=== PATIENT | female | born 1965 | race Caucasian/White ===

== ENCOUNTER 2019-03-15 20:11 | Emergency (ER) | payer BC, MEDICARE ==
[2019-03-15] MEDS ORDERED: Sodium Chloride 0.9% 2.5 ML Syringe FLUSH PRN (20:33)
[2019-03-15] MEDS ORDERED: Sodium Chloride 0.9% 10 ML Syringe FLUSH PRN (20:33)
--- NOTE | 2019-03-15 20:33 | EDM.PDOC ---
ED HPI GENERAL MEDICAL PROBLEM - General Stated Complaint: FALL Time Seen by Provider: 03/15/19 20:20 - History of Present Illness INITIAL COMMENTS - FREE TEXT/NARRATIVE: HISTORY AND PHYSICAL: History of present illness: The patient is a 53-year-old female with a history of hypertension,DM, as well as a stroke with right-sided weakness, as documented in the computer, who presents after a slip and fall on the ice at home approximately 3 hours ago. She says she fell onto her butt and her right side impacting her lower back and right hip and tried to grab onto things as she was going down and feels pain in her right shoulder and in the muscles of that area. She says she did hit her head and has some pain at the occipital head area which radiates into her neck. She had no loss of consciousness no nausea or vomiting and no neurosensory changes or weakness that is new for her. When I ask her about her stroke history and her documented right-sided weakness in the computer she says that is actually her left side that's week as a result of her stroke, so it is unclear due to the conflict of this information. She says she was at her baseline when this occurred and had no systemic issues such as cough shortness of breath fevers chills abdominal pain vomiting or diarrhea. She says that she ate earlier without issues and she did not take anything specifically for any of her pain. She states compliance with her medications. Patient says that her whole right side is sore as she did try to stop herself from falling. She has no mid back pain and no left-sided extremity complaints. The patient takes Plavix regularly. The patient had no end organ complaints such as chest pain shortness of breath urinary issues numbness tingling or weakness and only complained of a headache where she struck the back of her head. Review of systems: As per history of present illness and below otherwise all systems reviewed and negative. Past medical history: As per history of present illness and as reviewed below otherwise noncontributory. Surgical history: As per history of present illness and as reviewed below otherwise noncontributory. Social history: No reported history of drug or alcohol abuse. Family history: As per history of present illness and as reviewed below otherwise noncontributory. Physical exam: General: Well-developed well-nourished female who is nontoxic and ambulated into the ED and moves easily without assistance. She is awake alert and oriented speaking clearly to me and a c-collar was placed on my initial evaluation due to her complaints of posterior head and neck pain HEENT: Atraumatic, normocephalic, pupils reactive, negative for conjunctival pallor or scleral icterus, mucous membranes moist, throat clear, neck supple, nontender, trachea midline. There are no scalp defects or deformities appreciated and only minimal tenderness at the occipital skull area without any soft tissue changes, there are no midline step-offs or defects of the cervical spine and there is diffuse cervical tenderness and paraspinal tenderness without any defects Lungs: Clear to auscultation, breath sounds equal bilaterally, chest nontender. Heart: S1S2, regular rate and rhythm no overt murmurs Abdomen: Soft, nondistended, nontender. Negative for masses or hepatosplenomegaly. Negative for costovertebral tenderness. Pelvis: Stable nontender. There is some mild tenderness at the lateral right hip and the posterior hip and pelvis area without any overt bruising appreciated Genitourinary: Deferred. Rectal: Deferred. Extremities: Atraumatic and full range of motion of all extremities including the right upper extremity and right lower extremity. There is some mild tenderness at the posterior shoulder area but no defects or deformities and no soft tissue injuries appreciated and when I squeeze the musculature of the biceps triceps and the deltoid the patient says that is where she is having discomfort and states it seems like it's more in the muscle. The patient is able to flex extend and fully range of motion of this extremity. At the right lower extremity she also has full range of motion without defects deformities or palpable bony changes and there is only the soft tissue tenderness as described above in the hip area., negative for cords or calf pain. Neurovascular unremarkable. Neuro: Awake, alert, oriented. Cranial nerves II through XII unremarkable. Cerebellum unremarkable. Motor is very subtly diminished on the right compared to left and sensory unremarkable throughout. Exam nonfocal. Back: There are no midline step-offs in his defects of the thoracic or lumbar spine and no posterior rib or posterior pelvis tenderness. There is no soft tissue injuries appreciated such as ecchymosis erythema or soft tissue changes. Diagnostics: EKG CT scan of the head and C-spine, 1 view chest x-ray, right shoulder x-ray, right hip with pelvis x-ray, LS-spine x-ray, UA with reflex CBC CMP INR troponin Therapeutics: IV O2 monitor hydralazine tramadol As the patient takes Plavix and sustained a fall hitting her head this case was called as a trauma alert. I will continue to monitor the workup that involved the trauma surgeon Dr. Lorenzo as needed. The patient tells nursing that she has not taken her evening medications. She says that she takes her losartan/ hydrochlorothiazide in the morning. Repeat blood pressure is 190/94. I discussed with the patient and family at bedside the need to call and follow-up with her provider at [facility], Dr. Bolivar, as she may need medication adjustment as her blood pressure is running on the higher side. At this point she does not meet criteria for admission for this and I will advise close follow-up in the clinic and will give her advice for pain management at home. I will give her a few tramadol to take as needed if [id number] medications do not work. Impression: Fall with right-sided pain and multiple aches and pains, closed head injury; hypertension poorly controlled with history of same Definitive disposition and diagnosis as appropriate pending reevaluation and review of above. back Pain Score (Numeric/FACES): 10 L arm Pain Score (Numeric/FACES): 10 - Related Data Allergies Allergy/AdvReac Type Severity Reaction Status Date / Time latex Allergy Blisters Verified 03/15/19 20:50 Home Meds: Home Meds traMADol [Ultram] 50 mg PO QID PRN 11/01/15 [History] atorvaSTATin [Lipitor] 40 mg PO BEDTIME 11/07/15 [History] Clopidogrel [Plavix] 75 mg PO DAILY 03/15/19 [History] FLUoxetine [PROzac] 20 mg PO QAM 03/15/19 [History] Losartan/Hydrochlorothiazide [Losartan-HCTZ 100-25 MG] 25 - 100 mg PO DAILY 05/03 [History] Meloxicam 7.5 mg PO BID 03/15/19 [History] Spironolactone [Aldactone] 25 mg PO DAILY 03/15/19 [History] glipiZIDE [Glucotrol XL] 2.5 mg PO DAILY 03/15/19 [History] traZODone HCl [Trazodone HCl] 50 mg PO BEDTIME PRN 03/15/19 [History] Past Medical History Cardiovascular History: Reports: High Cholesterol, Hypertension [employer] History: Reports: Musculoskeletal History: Reports: Arthritis Other Musculoskeletal History: 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 reports she experiences stiffness and swelling during flare ups. Neurological History: Reports: CVA - Infectious Disease History Infectious Disease History: Reports: Chicken Pox, Measles, Mumps - Past Surgical History Female Surgical History: Reports: Section Social & Family History - Family History Family Medical History: Noncontributory Endocrine/Metabolic: Reports: Diabetes, type II - Caffeine Use Caffeine Use: Reports: None ED ROS GENERAL - Review of Systems Review Of Systems: Comprehensive ROS is negative, except as noted in HPI. ED EXAM, GENERAL - Physical Exam Exam: See Below (see dictation) Course - Vital Signs Last Recorded V/S: Last Vital Signs Temp 35.9 C 03/15/19 20:15 Pulse 74 03/15/19 21:45 Resp 18 03/15/19 21:45 BP 219/114 H 03/15/19 21:45 Pulse Ox 97 03/15/19 21:45 - Orders/Labs/Meds Orders: Active Orders 24 hr Category Date Time Status Patient Status [ADT] Stat ADT 03/15/19 21:23 Active Cardiac Monitoring [RC] . DIRECTED Care 03/15/19 20:33 Active Communication Order [RC] STAT Care 03/15/19 20:33 Active EKG Documentation Completion [RC] STAT Care 03/15/19 20:33 Active Oxygen Therapy, ED [RC] ASDIRECTED Care 03/15/19 20:33 Active Sodium Chloride 0.9% [Saline Flush] Med 03/15/19 20:33 Active 10 ml FLUSH ASDIRECTED PRN Sodium Chloride 0.9% [Saline Flush] Med 03/15/19 20:33 Active 2.5 ml FLUSH ASDIRECTED PRN Saline Lock Insert [OM.PC] Stat Oth 03/15/19 20:33 Ordered Medication Orders Sodium Chloride (Saline Flush) 10 ml FLUSH ASDIRECTED PRN PRN Reason: Keep Vein Open Last Admin: 03/15/19 21:39 Dose: 10 ml Sodium Chloride (Saline Flush) 2.5 ml FLUSH ASDIRECTED PRN PRN Reason: Keep Vein Open Last Admin: 03/15/19 21:39 Dose: 2.5 ml Labs: Laboratory Tests 03/15/19 03/15/19 03/15/19 Range/Units 21:20 21:20 21:20 WBC 7.19 (4.0-11.0) K/uL RBC 4.89 (4.30-5.90) M/uL Hgb 14.4 (12.0-16.0) g/dL Hct 41.5 (36.0-46.0) % MCV 84.9 (80.0-98.0) fL MCH 29.4 (27.0-32.0) pg MCHC 34.7 (31.0-37.0) g/dL RDW Std Deviation 41.0 (28.0-62.0) fl RDW Coeff of Trey 13 (11.0-15.0) % Plt Count 285 (150-400) K/uL MPV 9.60 (7.40-12.00) fL Neut % (Auto) 63.6 (48.0-80.0) % Lymph % (Auto) 28.8 (16.0-40.0) % [place] % (Auto) 5.8 (0.0-15.0) % Eos % (Auto) 1.5 (0.0-7.0) % Baso % (Auto) 0.3 (0.0-1.5) % Neut # (Auto) 4.6 (1.4-5.7) K/uL Lymph # (Auto) 2.1 (0.6-2.4) K/uL [place] # (Auto) 0.4 (0.0-0.8) K/uL Eos # (Auto) 0.1 (0.0-0.7) K/uL Baso # (Auto) 0.0 (0.0-0.1) K/uL Nucleated RBC % 0.0 /100WBC Nucleated RBCs # 0 K/uL INR 1.02 Sodium 139 (136-145) mmol/L Potassium 3.8 (3.5-5.1) mmol/L Chloride 101 (98-107) mmol/L Carbon Dioxide 23.9 (21.0-32.0) mmol/L BUN 8 (7.0-18.0) mg/dL Creatinine 0.7 (0.6-1.0) mg/dL Est Cr Clr Drug Dosing 70.94 mL/min Estimated GFR (MDRD) > 60.0 ml/min Glucose 125 H (74-106) mg/dL Calcium 9.5 (8.5-10.1) mg/dL Total Bilirubin 0.5 (0.2-1.0) mg/dL AST 20 (15-37) IU/L ALT 47 (14-63) IU/L Alkaline Phosphatase 119 H (46-116) U/L Troponin I < 0.050 (0.000-0.056) ng/mL Total Protein 8.5 H (6.4-8.2) g/dL Albumin 4.3 (3.4-5.0) g/dL Globulin 4.2 H (2.6-4.0) g/dL Albumin/Globulin Ratio 1.0 (0.9-1.6) Urine Color Urine Appearance Urine pH (5.0-8.0) Ur Specific [place] (1.001-1.035) Urine Protein (NEGATIVE) mg/dL Urine Glucose (UA) (NEGATIVE) mg/dL Urine Ketones (NEGATIVE) mg/dL Urine Occult Blood (NEGATIVE) Urine Nitrite (NEGATIVE) Urine Bilirubin (NEGATIVE) Urine Urobilinogen (<2.0) EU/dL Ur Leukocyte Esterase (NEGATIVE) 03/15/19 Range/Units 21:55 WBC (4.0-11.0) K/uL RBC (4.30-5.90) M/uL Hgb (12.0-16.0) g/dL Hct (36.0-46.0) % MCV (80.0-98.0) fL MCH (27.0-32.0) pg MCHC (31.0-37.0) g/dL RDW Std Deviation (28.0-62.0) fl RDW Coeff of Trey (11.0-15.0) % Plt Count (150-400) K/uL MPV (7.40-12.00) fL Neut % (Auto) (48.0-80.0) % Lymph % (Auto) (16.0-40.0) % [place] % (Auto) (0.0-15.0) % Eos % (Auto) (0.0-7.0) % Baso % (Auto) (0.0-1.5) % Neut # (Auto) (1.4-5.7) K/uL Lymph # (Auto) (0.6-2.4) K/uL [place] # (Auto) (0.0-0.8) K/uL Eos # (Auto) (0.0-0.7) K/uL Baso # (Auto) (0.0-0.1) K/uL Nucleated RBC % /100WBC Nucleated RBCs # K/uL INR Sodium (136-145) mmol/L Potassium (3.5-5.1) mmol/L Chloride (98-107) mmol/L Carbon Dioxide (21.0-32.0) mmol/L BUN (7.0-18.0) mg/dL Creatinine (0.6-1.0) mg/dL Est Cr Clr Drug Dosing mL/min Estimated GFR (MDRD) ml/min Glucose (74-106) mg/dL Calcium (8.5-10.1) mg/dL Total Bilirubin (0.2-1.0) mg/dL AST (15-37) IU/L ALT (14-63) IU/L Alkaline Phosphatase (46-116) U/L Troponin I (0.000-0.056) ng/mL Total Protein (6.4-8.2) g/dL Albumin (3.4-5.0) g/dL Globulin (2.6-4.0) g/dL Albumin/Globulin Ratio (0.9-1.6) Urine Color YELLOW Urine Appearance CLEAR Urine pH 6.0 (5.0-8.0) Ur Specific [place] <= 1.005 (1.001-1.035) Urine Protein NEGATIVE (NEGATIVE) mg/dL Urine Glucose (UA) NEGATIVE (NEGATIVE) mg/dL Urine Ketones NEGATIVE (NEGATIVE) mg/dL Urine Occult Blood NEGATIVE (NEGATIVE) Urine Nitrite NEGATIVE (NEGATIVE) Urine Bilirubin NEGATIVE (NEGATIVE) Urine Urobilinogen 0.2 (<2.0) EU/dL Ur Leukocyte Esterase NEGATIVE (NEGATIVE) Meds: Medications Generic Name Dose Route Start Last Admin Trade Name Freq PRN Reason Stop Dose Admin Sodium Chloride 10 ml 03/15/19 20:33 03/15/19 21:39 Saline Flush FLUSH 10 ml ASDIRECTED PRN Administration Keep Vein Open Sodium Chloride 2.5 ml 03/15/19 20:33 03/15/19 21:39 Saline Flush FLUSH 2.5 ml ASDIRECTED PRN Administration Keep Vein Open Discontinued Medications Generic Name Dose Route Start Last Admin Trade Name Ericka PRN Reason Stop Dose Admin Hydralazine HCl 10 mg 03/15/19 21:33 03/15/19 21:39 Apresoline IVPUSH 03/15/19 21:34 10 mg ONETIME ONE Administration Ketorolac Tromethamine 30 mg 03/15/19 21:41 03/15/19 21:48 Toradol IVPUSH 03/15/19 21:42 30 mg ONETIME ONE Administration Tramadol HCl 50 mg 03/15/19 22:27 Ultram PO 03/15/19 22:28 ONETIME ONE Departure - Departure Time of Disposition: 22:28 Disposition: Home, Self-Care 01 Condition: Good Clinical Impression: Multiple contusions, Poorly-controlled hypertension Fall Qualifiers: Encounter type: initial encounter Qualified Code(s): W19.XXXA - Unspecified fall, initial encounter Closed head injury Qualifiers: Encounter type: initial encounter Qualified Code(s): S09.90XA - Unspecified injury of head, initial encounter - Discharge Information Referrals: Andrea Bolivar MD [Primary Care Provider] - Additional Instructions: The following information is given to patients seen in the emergency department who are being discharged to home. This information is to outline your options for follow-up care. We provide all patients seen in our emergency department with a follow-up referral. The need for follow-up, as well as the timing and circumstances, are variable depending upon the specifics of your emergency department visit. If you don't have a primary care physician on staff, we will provide you with a referral. We always advise you to contact your personal physician following an emergency department visit to inform them of the circumstance of the visit and for follow-up with them and/or the need for any referrals to a consulting specialist. The emergency department will also refer you to a specialist when appropriate. This referral assures that you have the opportunity for followup care with a specialist. All of these measure are taken in an effort to provide you with optimal care, which includes your followup. Under all circumstances we always encourage you to contact your private physician who remains a resource for coordinating your care. When calling for followup care, please make the office aware that this follow-up is from your recent emergency room visit. If for any reason you are refused follow-up, please contact the [facility] emergency department at and ask to speak to the emergency department charge nurse. [address] [place] [address] Expect aches and pains for the next several days to one week and apply ice to all areas of discomfort pain and swelling for the next 24 hours and then switch to heat. Use [id number] Tylenol and/or ibuprofen and only in the stronger pain medication, tramadol, as needed. Please call and follow-up with your provider at [facility] or one of his associates for reevaluation and further care as well as discussion of your elevated blood pressure here this evening area and they may need to adjust her medications pending reevaluation blood pressures. Return to ER as needed and as discussed - My Orders Last 24 Hours: My Active Orders 03/15/19 20:33 Cardiac Monitoring [RC] . DIRECTED Communication Order [RC] STAT EKG Documentation Completion [RC] STAT Oxygen Therapy, ED [RC] ASDIRECTED Sodium Chloride 0.9% [Saline Flush] 10 ml FLUSH ASDIRECTED PRN Sodium Chloride 0.9% [Saline Flush] 2.5 ml FLUSH ASDIRECTED PRN Saline Lock Insert [OM.PC] Stat 03/15/19 21:23 Patient Status [ADT] Stat - Assessment/Plan Last 24 Hours: My Active Orders 03/15/19 20:33 Cardiac Monitoring [RC] . DIRECTED Communication Order [RC] STAT EKG Documentation Completion [RC] STAT Oxygen Therapy, ED [RC] ASDIRECTED Sodium Chloride 0.9% [Saline Flush] 10 ml FLUSH ASDIRECTED PRN Sodium Chloride 0.9% [Saline Flush] 2.5 ml FLUSH ASDIRECTED PRN Saline Lock Insert [OM.PC] Stat 03/15/19 21:23 Patient Status [ADT] Stat
[2019-03-15] MEDS ORDERED: hydrALAZINE 20 MG/ML SDV IVPUSH ONE (21:33)
--- NOTE | 2019-03-15 21:33 | CR ---
INDICATION: Pain following fall. PELVIS AND RIGHT HIP Comparison: No previous studies are currently available for comparison. No fractures or destructive lesions of bone are identified. No hip dislocation is evident. No significant hip arthritic changes are demonstrated. Included soft tissues show no significant findings. IMPRESSION: No significant abnormality identified. TAMMY MALDONADO MD [employer] [employer] Dictated by: Wil Maldonado MD @ 03/15/2019 21:32:30 (Electronically Signed)
--- NOTE | 2019-03-15 21:33 | CR ---
INDICATION: Pain following fall. CHEST, ONE VIEW An AP radiograph of the chest was performed. Comparison: 11/01/2015. The lungs appear clear and no pleural effusions are identified. The cardiomediastinal silhouette and pulmonary vasculature appear normal, as do the visualized bones. IMPRESSION: No acute intrathoracic abnormality identified. TAMMY MALDONADO MD [facility] Dictated by: Wil Maldonado MD @ 03/15/2019 21:31:26 (Electronically Signed)
--- NOTE | 2019-03-15 21:40 | CT ---
INDICATION: Pain following fall. CT HEAD WITHOUT CONTRAST TECHNIQUE: Multiple axial CT images were performed through the head without intravenous contrast administration. COMPARISON: 01/13/[address] FINDINGS: No acute intracranial hemorrhage is identified. No extra-axial collections are evident and there is no mass effect or midline shift. Ventricles are normal in size and configuration. Brain parenchyma appears normal with unremarkable pacheco-white differentiation. Osseous structures are within normal limits and no fractures are seen. Included portions of the paranasal sinuses and mastoid air cells are normally aerated. IMPRESSION: Normal non-contrast head CT. TAMMY MALDONADO MD [facility] Dictated by: Wil Maldonado MD @ 03/15/2019 21:37:43 (Electronically Signed)
--- NOTE | 2019-03-15 21:40 | CR ---
INDICATION: Pain following fall. CT CERVICAL SPINE WITHOUT CONTRAST TECHNIQUE: Multidetector axial CT imaging was performed through the cervical spine, without contrast. Sagittal and coronal reconstructions were generated. FINDINGS: No acute fractures are identified. Osseous alignment is unremarkable and no subluxation is seen. Prevertebral soft tissues appear normal. Included portions of the airway and lung apices are within normal limits. A subcentimeter right thyroid nodule is present. IMPRESSION: No fracture, subluxation, or other acute finding identified in the cervical spine. TAMMY MALDONADO MD [facility] [employer] Dictated by: Wil Maldonado MD @ 03/15/2019 21:38:34 (Electronically Signed)
[2019-03-15] MEDS ORDERED: Ketorolac 30 MG/ML SDV IVPUSH ONE (21:41)
--- NOTE | 2019-03-15 21:44 | CR ---
INDICATION: Pain following fall. RIGHT SHOULDER No fracture, dislocation, or destructive lesion of bone is seen. No arthritic changes or soft tissue abnormalities are identified. IMPRESSION: Negative right shoulder radiographs. TAMMY MALDONADO MD [facility] Dictated by: Wil Maldonado MD @ 03/15/2019 21:43:01 (Electronically Signed)
[2019-03-15 22:20] LABS: BLOOD UREA NITROGEN,BUN 8 mg/dL (7.0-18.0); CARBON DIOXIDE,CO2 23.9 mmol/L (21.0-32.0); CHLORIDE,CL 101 mmol/L (98-107); GLUCOSE RANDOM 125 mg/dL (74-106); POTASSIUM,K 3.8 mmol/L (3.5-5.1); SODIUM,NA 139 mmol/L (136-145)
[2019-03-15] MEDS ORDERED: traMADol 50 MG Tab PO ONE (22:27)
[2019-03-15 22:36] VITALS: BP 180/90; PULSE 64
== END 2019-03-15 22:44 | disposition home or self-care (01) ==
LOC: MW.ED 20:11
DX: S09.90XA Unspecified injury of head, initial encounter (principal); T14.8XXA Other injury of unspecified body region, initial encounter; M54.2 Cervicalgia; M25.551 Pain in right hip; M25.511 Pain in right shoulder; I10 Essential (primary) hypertension; E11.9 Type 2 diabetes mellitus without complications; E78.00 Pure hypercholesterolemia, unspecified; M06.9 Rheumatoid arthritis, unspecified; Z86.73 Personal history of transient ischemic attack (TIA), and cerebral infarction without residual deficits; Z79.02 Long term (current) use of antithrombotics/antiplatelets; Z91.040 Latex allergy status; Z79.84 Long term (current) use of oral hypoglycemic drugs; Z79.899 Other long term (current) drug therapy; W00.0XXA Fall on same level due to ice and snow, initial encounter
CPT/HCPCS: 36415; 70450; 71045; 72100; 72125; 73030; 73502; 80053; 81003; 84484; 85025; 85610; 93005; 96374; 96375; 99285; A9270; J0360; J1885

== ENCOUNTER 2019-03-23 20:19 | Emergency (ER) | payer MEDICARE ==
--- NOTE | 2019-03-23 21:08 | EDM.PDOC ---
ED HPI GENERAL MEDICAL PROBLEM - General Chief Complaint: ENT Problem Stated Complaint: EAR DRUM PAIN Time Seen by Provider: 03/23/19 20:27 Source of Information: Reports: Patient History Limitations: Reports: No Limitations - History of Present Illness INITIAL COMMENTS - FREE TEXT/NARRATIVE: HISTORY AND PHYSICAL: History of present illness: Patient is a 53-year-old female presents to the ED today with concern of right ear pain since this afternoon. Patient states earlier today she noticed blood in her ear canal. Patient states she does use Q-tips but is unsure if this is what caused injury to her ear with her symptoms but of infection going on. Patient denies any other symptoms or concerns. Patient denies fever, chills, chest pain, shortness of breath, or cough. Denies headache, neck stiff ness, change in vision, syncope, or near syncope. Denies nausea, vomiting, abdominal pain, diarrhea, constipation, or dysuria. Has not noted any blood in urine or stool. Patient has been eating and drinking appropriately. Review of systems: As per history of present illness and below otherwise all systems reviewed and negative. Past medical history: As per history of present illness and as reviewed below otherwise noncontributory. Surgical history: As per history of present illness and as reviewed below otherwise noncontributory. Social history: See social history for further information Family history: As per history of present illness and as reviewed below otherwise noncontributory. Physical exam: General: Patient is alert, oriented, and in no acute distress. Patient sitting comfortably on exam table. HEENT: Atraumatic, normocephalic, pupils equal and reactive bilaterally, negative for conjunctival pallor or scleral icterus, mucous membranes moist, left TM is normal, unable to visualize the right TM due to blood in the external auditory canal, patient does have pain with movement of the right auricle and pain with palpation of the right tragus but negative mastoid tenderness, throat clear, neck supple, nontender, trachea midline. No drooling or trismus noted. No meningeal signs. No hot potato voice noted. Lungs: Clear to auscultation, breath sounds equal bilaterally, chest nontender. Heart: S1S2, regular rate and rhythm without overt murmur Abdomen: Soft, nondistended, nontender. Negative for masses or hepatosplenomegaly. Negative for costovertebral tenderness. Pelvis: Stable nontender. Genitourinary: Deferred. Rectal: Deferred. Skin: Intact, warm, dry. No lesions or rashes noted. Extremities: Atraumatic, negative for cords or calf pain. Neurovascular unremarkable. Neuro: Awake, alert, oriented. Cranial nerves II through XII unremarkable. Cerebellum unremarkable. Motor and sensory unremarkable throughout. Exam nonfocal. Notes: Dr. Jean directly involved in patient care. I did call and speak with the nose and throat specialist, Dr. Turcios, at [facility] and thoroughly discussed patients case who recommended starting patient on Ciprodex and does not see the need for oral antibiotics at this time. Voices understanding and is agreeable to plan of care. Denies any further questions or concerns at this time. Diagnostics: None Therapeutics: None Prescription: Ciprodex Impression: Right acute otitis externa Plan: 1. Apply medication as prescribed. You can alternate ibuprofen and Tylenol as directed for pain and discomfort. Do not get water into the ear as discussed. 2. Follow-up with the ENT specialist, Dr. Turcios, as discussed. Return to the ED as needed and as discussed. Definitive disposition and diagnosis as appropriate pending reevaluation and review of above. Right Ear Pain Score (Numeric/FACES): 5 - Related Data Allergies Allergy/AdvReac Type Severity Reaction Status Date / Time latex Allergy Blisters Verified 03/23/19 20:29 Home Meds: Home Meds traMADol [Ultram] 50 mg PO QID PRN 11/01/15 [History] atorvaSTATin [Lipitor] 40 mg PO BEDTIME 11/07/15 [History] Clopidogrel [Plavix] 75 mg PO DAILY 03/15/19 [History] FLUoxetine [PROzac] 20 mg PO QAM 03/15/19 [History] Spironolactone [Aldactone] 25 mg PO DAILY 03/15/19 [History] glipiZIDE [Glucotrol XL] 2.5 mg PO DAILY 03/15/19 [History] traZODone HCl [Trazodone HCl] 25 mg PO BEDTIME PRN 03/15/19 [History] Losartan/Hydrochlorothiazide [Losartan-HCTZ 100-12.5 MG] 1 each PO DAILY [History] Past Medical History Cardiovascular History: Reports: High Cholesterol, Hypertension Respiratory History: Reports: None Gastrointestinal History: Reports: None Genitourinary History: Reports: None [employer] History: Reports: Musculoskeletal History: Reports: Arthritis Other Musculoskeletal History: 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 reports she experiences stiffness and swelling during flare ups. Neurological History: Reports: CVA Psychiatric History: Reports: Anxiety, Depression Endocrine/Metabolic History: Reports: Diabetes, Type II Hematologic History: Reports: None Immunologic History: Reports: None Oncologic (Cancer) History: Reports: None Dermatologic History: Reports: None - Infectious Disease History Infectious Disease History: Reports: Chicken Pox - Past Surgical History Head Surgeries/Procedures: Reports: None HEENT Surgical History: Reports: Tonsillectomy Female Surgical History: Reports: Section Endocrine Surgical History: Reports: None Social & Family History - Family History Family Medical History: Noncontributory Endocrine/Metabolic: Reports: Diabetes, type II - Tobacco Use Smoking Status *Q: Never Smoker - Caffeine Use Caffeine Use: Reports: None - Recreational Drug Use Recreational Drug Use: No ED ROS GENERAL - Review of Systems Review Of Systems: Comprehensive ROS is negative, except as noted in HPI. ED EXAM, GENERAL - Physical Exam Exam: See Below (see dictation) Course - Vital Signs Last Recorded V/S: Last Vital Signs Temp 96.9 F 03/23/19 20:25 Pulse 63 03/23/19 20:25 Resp 16 03/23/19 20:25 BP 167/92 H 03/23/19 20:25 Pulse Ox 97 03/23/19 20:25 Departure - Departure Time of Disposition: 21:08 Disposition: Home, Self-Care 01 Clinical Impression: Otitis externa Qualifiers: Otitis externa type: unspecified type Chronicity: acute Laterality: right Qualified Code(s): H60.501 - Unspecified acute noninfective otitis externa, right ear - Discharge Information Referrals: PCP,Unknown [Primary Care Provider] - Additional Instructions: The following information is given to patients seen in the emergency department who are being discharged to home. This information is to outline your options for follow-up care. We provide all patients seen in our emergency department with a follow-up referral. The need for follow-up, as well as the timing and circumstances, are variable depending upon the specifics of your emergency department visit. If you don't have a primary care physician on staff, we will provide you with a referral. We always advise you to contact your personal physician following an emergency department visit to inform them of the circumstance of the visit and for follow-up with them and/or the need for any referrals to a consulting specialist. The emergency department will also refer you to a specialist when appropriate. This referral assures that you have the opportunity for follow-up care with a specialist. All of these measure are taken in an effort to provide you with optimal care, which includes your follow-up. Under all circumstances we always encourage you to contact your private physician who remains a resource for coordinating your care. When calling for follow-up care, please make the office aware that this follow-up is from your recent emergency room visit. If for any reason you are refused follow-up, please contact the [facility] Emergency Department at and asked to speak to the emergency department charge nurse. [facility] [address] [place] [id number] [facility] [address] [place] [id number] [facility], Dr. Turcios [address] [place] [address], [address] [place] [id number] 1. Apply medication as prescribed. You can alternate ibuprofen and Tylenol as directed for pain and discomfort. Do not get water into the ear as discussed. 2. Follow-up with the ENT specialist, Dr. Turcios, as discussed. Return to the ED as needed and as discussed.
[2019-03-23 21:12] VITALS: BP 165/82; PULSE 64
== END 2019-03-23 21:15 | disposition home or self-care (01) ==
LOC: MW.ED 20:19
DX: H60.501 Unspecified acute noninfective otitis externa, right ear (principal); I10 Essential (primary) hypertension; E11.9 Type 2 diabetes mellitus without complications; E78.00 Pure hypercholesterolemia, unspecified; M19.90 Unspecified osteoarthritis, unspecified site; F41.9 Anxiety disorder, unspecified; F32.9 Major depressive disorder, single episode, unspecified; Z86.73 Personal history of transient ischemic attack (TIA), and cerebral infarction without residual deficits; Z91.040 Latex allergy status; Z79.899 Other long term (current) drug therapy; Z79.84 Long term (current) use of oral hypoglycemic drugs; Z79.02 Long term (current) use of antithrombotics/antiplatelets
CPT/HCPCS: 99282; 99283

== ENCOUNTER 2020-11-01 05:49 | Observation (INO) | payer MEDICARE ==
[2020-11-01] MEDS ORDERED: Sodium Chloride 0.9% 10 ML SDV IV PRN (05:52)
[2020-11-01] MEDS ORDERED: Sodium Chloride 0.9% 2.5 ML Syringe FLUSH PRN ×2 (05:52→08:39)
[2020-11-01] MEDS ORDERED: Sodium Chloride 0.9% 10 ML Syringe FLUSH PRN (05:52)
--- NOTE | 2020-11-01 06:13 | EDM.PDOC ---
ED HPI GENERAL MEDICAL PROBLEM - General Stated Complaint: HIGH BP, LEFT SIDE WEAKNESS, TROUBLE TALKING Time Seen by Provider: 11/01/20 06:00 - History of Present Illness INITIAL COMMENTS - FREE TEXT/NARRATIVE: HISTORY AND PHYSICAL: History of present illness: This is a 55-year-old female with a history significant for hypertension, diabetes, prior stroke in the past in 2014, who presents ER today with a last known well of 10 PM (8 hours ago) and when she woke up this morning at 6 AM she had difficulty speaking with slurred speech and difficulty coordinating her tongue as well as increased weakness to her left upper and left lower extremities. Patient reports that after her stroke in 2014 she had residual slight weakness to her left upper and left lower extremities however she reports when she woke up today that she had significantly worse weakness to her left upper and left lower extremities. Patient reports no weakness to her right side. Patient denies any change in sensation or paresthesias. Patient denies any double or blurred vision. Patient denies any chest pain or shortness of breath. Patient denies any recent fevers, shakes, chills, nausea, vomiting, diarrhea, dysuria, frequency, urgency. Patient reports that she is supposed to be on Plavix however she usually gets her Plavix in the mail and has been out of her Plavix now secondary to technical difficulties with obtaining it through mail order and has not taken it for approximately 7 days. Review of systems: As per history of present illness and below otherwise all systems reviewed and negative. Past medical history: As per history of present illness and as reviewed below otherwise noncontributory. Surgical history: As per history of present illness and as reviewed below otherwise noncontributory. Social history: No reported history of drug abuse. Family history: As per history of present illness and as reviewed below otherwise noncontributory. Physical exam: This patient was seen and evaluated during the 2019 SARS-CoV-2 novel coronavirus pandemic period. Community viral transmission is ongoing at time of this encounter and the emergency department is operating under pandemic response procedures. Constitutional: Patient is oriented to person, place, and time. Appears well- developed and well-nourished. No distress. HEENT: Moist mucous membranes Head: Normocephalic and atraumatic Eyes: Right eye exhibits no discharge. Left eye exhibits no discharge. No scleral icterus Neck: Normal range of motion. No tracheal deviation present. Cardiovascular: Normal rate and regular rhythm. Pulmonary: Effort normal, no respiratory distress. Abdominal: No distention Musculoskeletal: Normal range of motion Neurologic: Alert and oriented to person, place and time. Skin: [place], warm and dry. Psychiatric: Normal mood and affect. Behavior is normal. Judgment and thought content normal. Nursing note and vital signs have been reviewed Neuro: A&Ox3. Cranial nerves II-XII grossly intact except for a left facial droop which the patient reports is baseline for her, normal tongue movement, normal smile, 5 out of 5 strength to patients right upper and right lower extremity, patient with 4 out of 5 strength to her left upper and left lower extremities with a slight pronator drift to her left upper and lower extremities. Sensation intact to bilateral upper and lower extremities, no nystagmus, PERRLA, EOMI, normal speech, proprioception intact to bilateral lower extremities, normal finger to nose test, gait normal 1a) Level of consciousness: 0=alert; 1=not alert but arousable by minor stimulation; 2=not alert: requires repeated stimulation to attend or is obtunded and requires strong or painful stimulation to make movements; 3=responds only with reflex motor or autonomic effects or totally unresponsive, flaccid and ar eflexic SCORE 0 1b) LOC questions ("what month is it?", "how old are you?"): 0=answers both correctly; 1=answers one correctly; 2=answers neither correctly SCORE 0 1c) LOC commands (command patient to "open and close your eyes. Test Desk Supervisor and release your hand.): 0=performs both correctly; 1=performs one correctly; 2=performs neither correctly SCORE 0 2) Best gaze ("follow my finger"): 0=normal; 1=partial gaze palsy; 2=forced deviation or total gaze paresis SCORE 0 3) Visual christianson (use confrontation, finger counting, or visual threat. confront upper/lower quadrants of visual field): 0=no visual loss; 1=partial hemianopsia; 2=complete hemianopsia; 3=bilateral hemianopsia SCORE 0 4) Facial palsy (by words or pantomime, encourage patient to: "Show me your teeth. Raise your eyebrows. Close your eyes."): 0=normal symmetrical movement; 1=minor paralysis (flattened nasolabial fold, asymmetry on smiling); 2=partial paralysis (lower face); 3=complete paralysis SCORE 1 5) Arm motor (alternately position patient's arms. extend each arm with palms down [90 degrees if sitting, 45 degrees if supine] - test each arm in turn and start with nonparetic arm first): 0=no drift; 1=drift (arm falls before 10 seconds); 2=some effort vs. gravity; 3=no effort vs. gravity; 4=no movement; UN (untestable)=amputation or joint fusion SCORE 1 6) Leg motor (alternately position patient's legs. extend each leg [30 degrees, always while supine] - test nonparetic leg first): 0=no drift; 1=drift (leg falls before 5 seconds); 2=some effort vs. gravity; 3= no effort vs. gravity; 4=no movement; UN=amputation or joint fusion SCORE 1 7) Limb ataxia (ask patient [eyes open] to: "touch your finger to your nose. touch your heel to your baugh"): 0=absent; 1=present in one limb; 2=present in two or more limbs; UN=amputation or joint fusion SCORE 0 8) Sensory (test as many body parts as possible [arms and not hands, legs, trunk, face] for sensation using pinprick or noxious stimuli [in the obtunded or aphasic patient]): 0=normal; 1=mild to moderate sensory loss; 2=severe to total sensory loss SCORE 0 9) Best language (using pictures and a sentence list, ask patient to "describe what you see in this picture. Name the items in this picture. Read these sentences"): 0=no aphasia, 1=mild to moderate aphasia; 2=severe aphasia; 3=mute, global aphasia SCORE 0 10) Dysarthria (using a simple word list, ask patient to: "read these words" or "repeat these words"): 0=normal articulation; 1=mild to moderate dysarthria; 2=severe dysarthria; UN=intubated or other physical barrier SCORE 0 11) Extinction and inattention (sufficient information to determine these scores may have been obtained during the prior testing): 0=no abnormality; 1=visual, tactile, auditory, spatial or personal inattention; 2=profound melvin-inattention or extinction to more than one modality SCORE 0 TOTAL NIHSS Score: 3 Diagnostics: CBC, CMP, INR, troponin, urinalysis Chest Xray: Normal cardiac silhouette No infiltrates or effusions identified. No PTX No evidence of acute bony fracture. As interpreted by ER MD: Arthur CT head, CTA of head and neck Therapeutics: Nicardipine drip Assessment and plan: This is a 55-year-old female with a history significant for hypertension, diabetes, prior stroke with residual left-sided weakness who presents ER today secondary to waking up with worsening weakness to her left upper and left lower extremity with slurring her speech and difficulty coordinating her tongue. Upon arrival to the ED, the patient speech had significantly improved but still has weakness to her left upper and left lower extremity. Patient is supposed be on Plavix for her prior stroke however she has not taken any Plavix for the last 7 days. Patient's blood pressure is markedly elevated here in the ED 234/124 A stroke alert was immediately called upon evaluation of the patient. Patient's last known well is approximately 8 hours prior to arrival to the ED. Patient will get a CT scan of her head as well as a CT angio of her head and neck for further evaluation. Patient will get started on a nicardipine drip to manage her elevated blood pressure. 6:44 AM: Patient was started on a nicardipine drip secondary to her markedly elevated blood pressure. Patient's blood pressure currently is Upon reevaluation of the patient, she reports that her left upper and lower extremity weakness has significantly improved. Patient's speech has significantly improved as well. Definitive disposition and diagnosis as appropriate pending reevaluation and review of above. Critical Care: The high probability of sudden, clinically significant deterioration in the patient's condition required the highest level of my preparedness to intervene urgently. The services I provided to this patient were to treat and/or prevent clinically significant deterioration. Services included the following: chart data review, reviewing nursing notes and/or old charts, documentation time, clinical documentation consultant collaboration regarding findings and treatment options, medication orders and management, direct patient care, vital sign assessments and ordering, interpreting and reviewing diagnostic studies/lab tests. Aggregate critical care time includes only time during which I was engaged inwork directly related to the patient's care, as described above, whether at the bedside or elsewhere in the Emergency Department. It did not include time spent performing other reported procedures or the services of residents, students, nurses or physician assistants. Critical Care Time: 35 minutes Left Hand Pain Score (Numeric/FACES): 0 - Related Data Allergies Allergy/AdvReac Type Severity Reaction Status Date / Time No Known Allergies Allergy Verified 11/01/20 15:13 Home Meds: Home Meds traMADol [Ultram] 50 mg PO QID PRN 11/01/15 [History] atorvaSTATin [Lipitor] 40 mg PO BEDTIME 11/07/15 [History] glipiZIDE [Glucotrol XL] 5 mg PO DAILY 03/15/19 [History] Aspirin 81 mg PO DAILY 11/01/20 [History] Pioglitazone [Actos] 30 mg PO DAILY PRN 11/01/20 [History] Telmisartan 80 mg PO DAILY 11/01/20 [History] Clopidogrel [Plavix] 75 mg PO DAILY #30 tab 11/02/20 [Rx] amLODIPine Besylate [Amlodipine Besylate] 10 mg PO DAILY #30 tablet 11/02/20 [Rx] Past Medical History Cardiovascular History: Reports: High Cholesterol, Hypertension Respiratory History: Reports: None Gastrointestinal History: Reports: None Genitourinary History: Reports: None 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 reports she experiences stiffness and swelling during flare ups. Neurological History: Reports: CVA Psychiatric History: Reports: Anxiety, Depression Endocrine/Metabolic History: Reports: Diabetes, Type II Hematologic History: Reports: None Immunologic History: Reports: None Oncologic (Cancer) History: Reports: None Dermatologic History: Reports: None - Infectious Disease History Infectious Disease History: Reports: Chicken Pox - Past Surgical History Head Surgeries/Procedures: Reports: None HEENT Surgical History: Reports: Tonsillectomy Female Surgical History: Reports: Section Endocrine Surgical History: Reports: None Social & Family History - Family History Family Medical History: No Pertinent Family History Endocrine/Metabolic: Reports: Diabetes, type II - Caffeine Use Caffeine Use: Reports: None ED ROS GENERAL - Review of Systems Review Of Systems: See Below ED EXAM, GENERAL - Physical Exam Exam: See Below #1 Interpretation EKG Interpretation Comments: EKG: As interpreted by ER physician: Arthur: Nonspecific ST-T wave abnormalities Normal axis No evidence of ST elevation OR Normal sinus rhythm heart rate of 81 Course - Vital Signs Last Recorded V/S: Last Vital Signs Temp 97.6 F 11/02/20 15:06 Pulse 63 11/02/20 15:58 Resp 18 11/02/20 15:06 BP 141/76 H 11/02/20 15:58 Pulse Ox 99 11/02/20 15:06 - Orders/Labs/Meds Labs: Laboratory Tests 11/01/20 11/01/20 11/01/20 Range/Units 05:54 05:54 05:54 WBC 6.43 (4.0-11.0) K/uL RBC 4.65 (4.30-5.90) M/uL Hgb 13.5 (12.0-16.0) g/dL Hct 39.2 (36.0-46.0) % MCV 84.3 (80.0-98.0) fL MCH 29.0 (27.0-32.0) pg MCHC 34.4 (31.0-37.0) g/dL RDW Std Deviation 40.9 (28.0-62.0) fl RDW Coeff of Trey 14 (11.0-15.0) % Plt Count 275 (150-400) K/uL MPV 9.60 (7.40-12.00) fL Neut % (Auto) 55.9 (48.0-80.0) % Lymph % (Auto) 33.3 (16.0-40.0) % [place] % (Auto) 8.6 (0.0-15.0) % Eos % (Auto) 1.7 (0.0-7.0) % Baso % (Auto) 0.5 (0.0-1.5) % Neut # (Auto) 3.6 (1.4-5.7) K/uL Lymph # (Auto) 2.1 (0.6-2.4) K/uL [place] # (Auto) 0.6 (0.0-0.8) K/uL Eos # (Auto) 0.1 (0.0-0.7) K/uL Baso # (Auto) 0.0 (0.0-0.1) K/uL Nucleated RBC % 0.0 /100WBC Nucleated RBCs # 0 K/uL INR 0.98 APTT 24.8 (18.6-31.3) SEC Sodium 137 (136-145) mmol/L Potassium 3.6 (3.5-5.1) mmol/L Chloride 101 (98-107) mmol/L Carbon Dioxide 25.5 (21.0-32.0) mmol/L BUN 11 (7.0-18.0) mg/dL Creatinine 0.8 (0.6-1.0) mg/dL Est Cr Clr Drug Dosing TNP Estimated GFR (MDRD) > 60.0 ml/min Glucose 184 H (74-106) mg/dL POC Glucose (70-99) mg/dL Hemoglobin A1c (4.5 - 6.2) % Calcium 9.2 (8.5-10.1) mg/dL Total Bilirubin 0.5 (0.2-1.0) mg/dL AST 23 (15-37) IU/L ALT 43 (14-63) IU/L Alkaline Phosphatase 142 H (46-116) U/L Creatine Kinase (26-308) U/L Troponin I < 0.050 (0.000-0.056) ng/mL Total Protein 7.8 (6.4-8.2) g/dL Albumin 3.9 (3.4-5.0) g/dL Globulin 3.9 (2.6-4.0) g/dL Albumin/Globulin Ratio 1.0 (0.9-1.6) Triglycerides (0-200) mg/dL Cholesterol (50-200) mg/dL LDL Cholesterol, Calc (60-180) mg/dL VLDL Cholesterol (5-55) mg/dL HDL Cholesterol (40-60) mg/dL Cholesterol/HDL Ratio (3.3-6.0) TSH, Ultra Sensitive (0.36-3.74) uIU/mL 11/01/20 11/01/20 11/01/20 Range/Units 05:54 05:54 05:54 WBC (4.0-11.0) K/uL RBC (4.30-5.90) M/uL Hgb (12.0-16.0) g/dL Hct (36.0-46.0) % MCV (80.0-98.0) fL MCH (27.0-32.0) pg MCHC (31.0-37.0) g/dL RDW Std Deviation (28.0-62.0) fl RDW Coeff of Trey (11.0-15.0) % Plt Count (150-400) K/uL MPV (7.40-12.00) fL Neut % (Auto) (48.0-80.0) % Lymph % (Auto) (16.0-40.0) % [place] % (Auto) (0.0-15.0) % Eos % (Auto) (0.0-7.0) % Baso % (Auto) (0.0-1.5) % Neut # (Auto) (1.4-5.7) K/uL Lymph # (Auto) (0.6-2.4) K/uL [place] # (Auto) (0.0-0.8) K/uL Eos # (Auto) (0.0-0.7) K/uL Baso # (Auto) (0.0-0.1) K/uL Nucleated RBC % /100WBC Nucleated RBCs # K/uL INR APTT (18.6-31.3) SEC Sodium (136-145) mmol/L Potassium (3.5-5.1) mmol/L Chloride (98-107) mmol/L Carbon Dioxide (21.0-32.0) mmol/L BUN (7.0-18.0) mg/dL Creatinine (0.6-1.0) mg/dL Est Cr Clr Drug Dosing Estimated GFR (MDRD) ml/min Glucose (74-106) mg/dL POC Glucose 191 H (70-99) mg/dL Hemoglobin A1c 7.9 H (4.5 - 6.2) % Calcium (8.5-10.1) mg/dL Total Bilirubin (0.2-1.0) mg/dL AST (15-37) IU/L ALT (14-63) IU/L Alkaline Phosphatase (46-116) U/L Creatine Kinase (26-308) U/L Troponin I (0.000-0.056) ng/mL Total Protein (6.4-8.2) g/dL Albumin (3.4-5.0) g/dL Globulin (2.6-4.0) g/dL Albumin/Globulin Ratio (0.9-1.6) Triglycerides 179 (0-200) mg/dL Cholesterol 201 H (50-200) mg/dL LDL Cholesterol, Calc 112 (60-180) mg/dL VLDL Cholesterol 35 (5-55) mg/dL HDL Cholesterol 53 (40-60) mg/dL Cholesterol/HDL Ratio 3.8 (3.3-6.0) TSH, Ultra Sensitive 3.04 (0.36-3.74) uIU/mL 11/01/20 Range/Units 05:54 WBC (4.0-11.0) K/uL RBC (4.30-5.90) M/uL Hgb (12.0-16.0) g/dL Hct (36.0-46.0) % MCV (80.0-98.0) fL MCH (27.0-32.0) pg MCHC (31.0-37.0) g/dL RDW Std Deviation (28.0-62.0) fl RDW Coeff of Trey (11.0-15.0) % Plt Count (150-400) K/uL MPV (7.40-12.00) fL Neut % (Auto) (48.0-80.0) % Lymph % (Auto) (16.0-40.0) % [place] % (Auto) (0.0-15.0) % Eos % (Auto) (0.0-7.0) % Baso % (Auto) (0.0-1.5) % Neut # (Auto) (1.4-5.7) K/uL Lymph # (Auto) (0.6-2.4) K/uL [place] # (Auto) (0.0-0.8) K/uL Eos # (Auto) (0.0-0.7) K/uL Baso # (Auto) (0.0-0.1) K/uL Nucleated RBC % /100WBC Nucleated RBCs # K/uL INR APTT (18.6-31.3) SEC Sodium (136-145) mmol/L Potassium (3.5-5.1) mmol/L Chloride (98-107) mmol/L Carbon Dioxide (21.0-32.0) mmol/L BUN (7.0-18.0) mg/dL Creatinine (0.6-1.0) mg/dL Est Cr Clr Drug Dosing Estimated GFR (MDRD) ml/min Glucose (74-106) mg/dL POC Glucose (70-99) mg/dL Hemoglobin A1c (4.5 - 6.2) % Calcium (8.5-10.1) mg/dL Total Bilirubin (0.2-1.0) mg/dL AST (15-37) IU/L ALT (14-63) IU/L Alkaline Phosphatase (46-116) U/L Creatine Kinase 100 (26-308) U/L Troponin I (0.000-0.056) ng/mL Total Protein (6.4-8.2) g/dL Albumin (3.4-5.0) g/dL Globulin (2.6-4.0) g/dL Albumin/Globulin Ratio (0.9-1.6) Triglycerides (0-200) mg/dL Cholesterol (50-200) mg/dL LDL Cholesterol, Calc (60-180) mg/dL VLDL Cholesterol (5-55) mg/dL HDL Cholesterol (40-60) mg/dL Cholesterol/HDL Ratio (3.3-6.0) TSH, Ultra Sensitive (0.36-3.74) uIU/mL Meds: Medications Discontinued Medications Generic Name Dose Route Start Last Admin Trade Name Freq PRN Reason Stop Dose Admin Acetaminophen 650 mg 11/01/20 08:39 Acetaminophen 325 Mg Tab PO Q4H PRN Pain (Mild 1-3)/fever Amlodipine Besylate 5 mg 11/02/20 10:51 11/02/20 11:20 Amlodipine 5 Mg Tab PO 11/02/20 10:52 5 mg ONETIME ONE Administration Amlodipine Besylate 5 mg 11/02/20 13:41 11/02/20 14:02 Amlodipine 5 Mg Tab PO 11/02/20 13:42 5 mg ONETIME ONE Administration Aspirin 81 mg 11/01/20 09:00 11/02/20 08:18 Aspirin 81 Mg Tab.Chew PO 81 mg DAILY ANA Administration Atorvastatin Calcium 40 mg 11/01/20 21:00 11/01/20 20:34 Atorvastatin 40 Mg Tab PO 40 mg BEDTIME ANA Administration Clopidogrel Bisulfate 75 mg 11/01/20 13:00 11/02/20 08:20 Clopidogrel 75 Mg Tab PO 75 mg DAILY ANA Administration Dextrose/Water 50 ml 11/01/20 08:42 50% Dextrose In Water 50 Ml Syringe IVPUSH ASDIRECTED PRN Hypoglycemia Enoxaparin Sodium 40 mg 11/01/20 13:00 11/02/20 13:33 Enoxaparin 40 Mg/0.4 Ml Syringe SUBCUT 40 mg Q24H ANA Administration Gadobenate Dimeglumine 20 ml 11/01/20 09:54 11/01/20 10:01 Gadobenate Dimeglumine 529 Mg/Ml 20 Ml Sdv IVPUSH 11/01/20 09:55 15 ml ONETIME STA Administration Glucagon 1 mg 11/01/20 08:42 Glucagon,Human Recombinant 1 Mg Vial IM ASDIRECTED PRN Hypoglycemia Nicardipine HCl 20 mg in 200 mls @ 50 mls/hr 11/01/20 06:15 11/01/20 06:48 Cardene In Ns 20 Mg/200 Ml IV 0 mg/hr TITRATE ANA 0 mls/hr Titration Protocol 5 MG/HR Sodium Chloride 1,000 mls @ 150 mls/hr 11/01/20 07:45 Normal Saline IV ASDIRECTED ANA Magnesium Sulfate 2 gm/ Premix 50 mls @ 25 mls/hr 11/02/20 08:06 11/02/20 08:22 IV 11/02/20 10:05 25 mls/hr ONETIME ONE Administration Insulin Aspart 0 unit 11/01/20 08:42 11/02/20 12:38 Insulin Aspart 100 Units/Ml 3 Ml Pen SUBCUT 1 unit TIDAC ANA Administration Protocol Iopamidol 100 ml 11/01/20 06:20 11/01/20 06:21 Iopamidol 755 Mg/Ml 500 Ml Multipack Bottle IVPUSH 11/01/20 06:21 100 ml ONETIME STA Administration Labetalol HCl 20 mg 11/01/20 13:58 11/02/20 13:51 Labetalol 100 Mg/20 Ml Mdv IVPUSH 20 mg Q4H PRN Administration SBP>180 Labetalol HCl 10 mg 11/02/20 15:23 11/02/20 15:58 Labetalol 100 Mg/20 Ml Mdv IVPUSH 11/02/20 15:24 Not Given ONETIME ONE Ondansetron HCl 4 mg 11/01/20 08:39 Ondansetron 4 Mg/2 Ml Sdv IVPUSH Q4H PRN Nausea Sodium Chloride 10 ml 11/01/20 05:52 11/01/20 06:23 Sodium Chloride 0.9% 10 Ml Syringe FLUSH 10 ml ASDIRECTED PRN Administration Keep Vein Open Sodium Chloride 2.5 ml 11/01/20 05:52 11/01/20 06:22 Sodium Chloride 0.9% 2.5 Ml Syringe FLUSH 2.5 ml ASDIRECTED PRN Administration Keep Vein Open Sodium Chloride 10 ml 11/01/20 05:52 Sodium Chloride 0.9% 10 Ml Sdv IV ASDIRECTED PRN IV Use Sodium Chloride 2.5 ml 11/01/20 08:39 Sodium Chloride 0.9% 2.5 Ml Syringe FLUSH ASDIRECTED PRN Keep Vein Open Telmisartan 80 mg 11/02/20 09:00 Telmisartan 40 Mg Tab PO DAILY [facility] Telmisartan 80 mg 11/01/20 15:00 11/02/20 08:19 Telmisartan 40 Mg Tab PO 80 mg DAILY ANA Administration Departure - Departure Time of Disposition: 01:17 Disposition: Refer to Observation Condition: Good Clinical Impression: Acute stroke due to ischemia, Hypertensive emergency - Discharge Information
[2020-11-01] MEDS ORDERED: niCARdipine/Normal Saline 20 MG/200 ML BAG IV SCH (06:15)
[2020-11-01] MEDS ORDERED: Iopamidol 755 MG/ML 500 ML Multipack Bottle IVPUSH STA (06:20)
[2020-11-01 06:44] LABS: BLOOD UREA NITROGEN,BUN 11 mg/dL (7.0-18.0); CARBON DIOXIDE,CO2 25.5 mmol/L (21.0-32.0); CHLORIDE,CL 101 mmol/L (98-107); GLUCOSE RANDOM 184 mg/dL (74-106); POTASSIUM,K 3.6 mmol/L (3.5-5.1); SODIUM,NA 137 mmol/L (136-145)
--- NOTE | 2020-11-01 06:47 | CT ---
DATE: 11/01/2020. CLINICAL HISTORY: Patient with left-sided weakness and slurred speech. TECHNIQUE: Standard helical CT image acquisition of the brain following by standard helical CT image acquisition through the head and neck after intravenous contrast bolus enhancement. Multiplanar reconstructed images performed on a separate workstation. COMPARISON: Head CT dated 03/15/2019. FINDINGS: CT HEAD: There is no intracranial hemorrhage. No extra-axial collection, mass effect, or midline shift. Noriega-white matter differentiation is preserved. Ventricles are normal in size and morphology for patient age. The calvarium is unremarkable. The orbits are unremarkable. The paranasal sinuses are unremarkable. The mastoid air cells are unremarkable. The soft tissues are unremarkable. CT ANGIOGRAM HEAD AND NECK: The origins of the great vessels from the aortic arch are patent. The origins of the right and left vertebral arteries are patent. The common carotid arteries are patent. Predominately noncalcified atherosclerotic plaque involving the carotid bulbs but without significant stenoses at the origins of the proximal internal carotid arteries by NASCET criteria. The more distal cervical segments of the internal carotid arteries are patent. The left vertebral artery is dominant. The cervical segments of the vertebral arteries are patent. 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 This is of uncertain chronicity and may be chronic as there prominent adjacent lenticulostriate branches as well as opacification the more distal branches of the middle cerebral artery. The visualized lung apices are unremarkable. There are several heterogeneously enhancing nodules within the thyroid gland the largest of which is in the right lobe and measures 10 mm. This could be further assessed with thyroid ultrasound on a non urgent basis. There are degenerative changes in the cervical spine. IMPRESSION: 1. No CT evidence of acute intracranial abnormality. 2. 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 Correlate for symptoms referable to the left MCA territory. 3. Patent cervical arterial vasculature without hemodynamically significant luminal stenosis. 4. Heterogeneously enhancing nodules within the thyroid gland, the largest of which is in the right lobe measures 10 mm. This could be further assessed with thyroid ultrasound on a non urgent basis. Please note that all CT scans at this facility use dose modulation, iterative reconstruction, and/or weight-based dosing when appropriate to reduce radiation dose to as low as reasonably achievable. Dictated by Jerome Escudero MD @ 11/01/2020 11:08:[address] Jerome Escudero @ Nov 01 2020 11:08AM
--- NOTE | 2020-11-01 07:25 | CR ---
INDICATION: Stroke code TECHNIQUE: Chest 1 views COMPARISON: 03/15/2019 FINDINGS: Cardiovascular and mediastinum: Heart size and vasculature are normal in caliber and appearance. Lungs and pleural spaces: Lungs are clear. No sign of infiltrate or mass. No sign of pleural effusion. No pneumothorax. Bones and soft tissues: No significant findings. IMPRESSION: No acute findings and no significant changes from the prior exam. Dictated by Thong Quan MD @ 11/01/2020 7:24:[address] Thong Quan @ Nov 01 2020 7:24AM
[2020-11-01] MEDS ORDERED: Sodium Chloride 0.9% 1,000 ML IV SCH (07:45)
[2020-11-01 08:24] LABS: HEMOGLOBIN A1C 7.9 %
--- NOTE | 2020-11-01 08:31 | PCM.HP.2 ---
H&P History of Present Illness - General Date of Service: 11/01/20 Admit Problem/Dx: Admission Diagnosis/Problem Admission Diagnosis/Problem Stroke-like symptoms Source of Information: Patient, Old Records History Limitations: Reports: No Limitations - History of Present Illness Initial Comments - Free Text/Narative: This 55-year-old female with past medical history of hypertension, diabetes type 2 and prior CVA in 2016 presented to the ER with complaints that she woke up this morning having difficulty speaking with slurred speech and difficulty coordinating her tongue as well as increased weakness to left upper and left lower extremity. Reports that in 2016 she did have two stroke which resulted in slight weakness to her left upper and lower extremities that partially resolved, but also weakness on the right extremities as well. She feels that this weakness today is significantly worse than her baseline. 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 She was outside most of the day without adequate amount of water and was subjected to the intense heat of the day. She reports that she got home felt very tired and went to bed without taking any of her medications. She denies any right-sided weakness or difficulties. Denies any change in sensation, numbness or tingling. She denies any visual changes. Denies any chest pain or shortness of breath no palpitations. She denies fevers chills neck pain. Denies any abdominal pain urinary symptoms and no black or bloody bowel movements. She does report that she is supposed to be taking Plavix but has been out for the past week due to not receiving it in the mail. In the ER EKG obtained which shows sinus rhythm heart rate [address] or T wave changes no evidence of ischemia. Head CT obtained which reveals no acute or significant findings. CTA of head and neck also unremarkable with no sign of occlusion or significant aneurysm or stenosis. These are all preliminary reads at this point. Chest x-ray obtained which shows no acute cardiopulmonary process. Lab work in the ER fairly unremarkable. Glucose mildly elevated at 184. Troponin negative. Covid swab negative. Patient was initially started on nicardipine drip due to severely elevated blood pressures at 220/119. Nicardipine drip was on for approximately 1 hour and has been since titrated off as blood pressures have dropped to 140s to 150s over 80s. Heart rate remains 75. Patient afebrile. Patient on room air satting 97%. Patient will be admitted observation for possible CVA. In October 2015 patient noted to have watershed CVA with multiple left hemispheric strokes predominantly involving borders on the areas between posterior cerebral artery and middle cerebral artery as well as anterior cerebral artery she was noted at this time to have right-sided upper and lower extremity weakness. At this time in 2015 she had extensive work-up, Echo completed at this time showed no intracardiac source of stroke. She also had hypercoagulable work-up which appears to be negative. It appears that within multiple PCP visits she is noted to be noncompliant with aspirin as well as cholesterol medications and blood pressure control. PCP Dr. Bolivar - Related Data Allergies/Adverse Reactions: Allergies Allergy/AdvReac Type Severity Reaction Status Date / Time latex Allergy Blisters Verified 11/01/20 06:13 Home Medications: Home Meds traMADol [Ultram] 50 mg PO QID PRN 11/01/15 [History] atorvaSTATin [Lipitor] 40 mg PO BEDTIME 11/07/15 [History] Clopidogrel [Plavix] 75 mg PO DAILY 03/15/19 [History] FLUoxetine [PROzac] 20 mg PO QAM 03/15/19 [History] Spironolactone [Aldactone] 25 mg PO DAILY 03/15/19 [History] glipiZIDE [Glucotrol XL] 2.5 mg PO DAILY 03/15/19 [History] traZODone HCl [Trazodone HCl] 25 mg PO BEDTIME PRN 03/15/19 [History] Losartan/Hydrochlorothiazide [Losartan-HCTZ 100-12.5 MG] 1 each PO DAILY 03/23/19 [History] Past Medical History Cardiovascular History: Reports: High Cholesterol, Hypertension Respiratory History: Reports: None Gastrointestinal History: Reports: None Genitourinary History: Reports: None 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 reports she experiences stiffness and swelling during flare ups. Neurological History: Reports: CVA Psychiatric History: Reports: Anxiety, Depression Endocrine/Metabolic History: Reports: Diabetes, Type II Hematologic History: Reports: None Immunologic History: Reports: None Oncologic (Cancer) History: Reports: None Dermatologic History: Reports: None - Infectious Disease History Infectious Disease History: Reports: Chicken Pox - Past Surgical History Head Surgeries/Procedures: Reports: None HEENT Surgical History: Reports: Tonsillectomy Female Surgical History: Reports: Section Endocrine Surgical History: Reports: None Social & Family History - Family History Family Medical History: No Pertinent Family History Endocrine/Metabolic: Reports: Diabetes, type II - Tobacco Use Tobacco Use Status *Q: Never Tobacco User - Caffeine Use Caffeine Use: Reports: None - Alcohol Use Alcohol Use History: No - Recreational Drug Use Recreational Drug Use: No - Living Situation & Occupation Occupation: Employed H&P Review of Systems - Review of Systems: Review Of Systems: See Below General: Reports: Malaise. Denies: Fever, Chills HEENT: Reports: No Symptoms. Denies: Headaches, Sinus Congestion, Sore Throat, Vertigo Pulmonary: Reports: No Symptoms. Denies: Shortness of Breath Cardiovascular: Reports: No Symptoms. Denies: Chest Pain Gastrointestinal: Reports: No Symptoms. Denies: Abdominal Pain, Nausea, Vomiting Genitourinary: Reports: No Symptoms. Denies: Dysuria, Frequency Musculoskeletal: Reports: No Symptoms Skin: Reports: No Symptoms. Denies: Rash Psychiatric: Reports: No Symptoms Neurological: Reports: Weakness (Left upper and lower extremities) Hematologic/Lymphatic: Reports: No Symptoms Immunologic: Reports: No Symptoms Exam - Exam Exam: See Below - Vital Signs Vital Signs: Last Vital Signs Temp 96.7 F L 11/01/20 05:55 Pulse 75 11/01/20 07:45 Resp 18 11/01/20 07:45 BP 151/84 H 11/01/20 07:45 Pulse Ox 96 11/01/20 07:45 Weight: 75.3 kg - Exam Quality Assessment: DVT Prophylaxis. No: Supplemental Oxygen General: Alert, Oriented, Cooperative HEENT: Conjunctiva Clear, Mucosa Moist & Shindler, Posterior Pharynx Clear Lungs: Clear to Auscultation, Normal Respiratory Effort Cardiovascular: Regular Rate, Regular Rhythm GI/Abdominal Exam: Normal Bowel Sounds, Soft, Non-Tender, No Distention Back Exam: Normal Inspection, Full Range of Motion Extremities: Normal Inspection, Normal Range of Motion, Non-Tender, No Pedal Edema Neurological: Normal Speech, Normal Tone. No: Strength Equal Bilateral (4-5 weakness noted to left upper and lower extremities. Sensation intact. Right side upper and lower 5 out of 5 and at baseline.) Neuro Extensive - Mental Status: Alert, Oriented x3, Normal Mood/Affect Neuro Extensive - Motor, Sensory, Reflexes: CN II-XII Intact Psychiatric: Alert, Normal Affect, Normal Mood - Patient Data Lab Results Last 24 hrs: Laboratory Results - last 24 hr 11/01/20 11/01/20 11/01/20 Range/Units 05:54 05:54 05:54 WBC 6.43 (4.0-11.0) K/uL RBC 4.65 (4.30-5.90) M/uL Hgb 13.5 (12.0-16.0) g/dL Hct 39.2 (36.0-46.0) % MCV 84.3 (80.0-98.0) fL MCH 29.0 (27.0-32.0) pg MCHC 34.4 (31.0-37.0) g/dL RDW Std Deviation 40.9 (28.0-62.0) fl RDW Coeff of Trey 14 (11.0-15.0) % Plt Count 275 (150-400) K/uL MPV 9.60 (7.40-12.00) fL Neut % (Auto) 55.9 (48.0-80.0) % Lymph % (Auto) 33.3 (16.0-40.0) % [place] % (Auto) 8.6 (0.0-15.0) % Eos % (Auto) 1.7 (0.0-7.0) % Baso % (Auto) 0.5 (0.0-1.5) % Neut # (Auto) 3.6 (1.4-5.7) K/uL Lymph # (Auto) 2.1 (0.6-2.4) K/uL [place] # (Auto) 0.6 (0.0-0.8) K/uL Eos # (Auto) 0.1 (0.0-0.7) K/uL Baso # (Auto) 0.0 (0.0-0.1) K/uL Nucleated RBC % 0.0 /100WBC Nucleated RBCs # 0 K/uL INR 0.98 APTT 24.8 (18.6-31.3) SEC Sodium 137 (136-145) mmol/L Potassium 3.6 (3.5-5.1) mmol/L Chloride 101 (98-107) mmol/L Carbon Dioxide 25.5 (21.0-32.0) mmol/L BUN 11 (7.0-18.0) mg/dL Creatinine 0.8 (0.6-1.0) mg/dL Est Cr Clr Drug Dosing TNP Estimated GFR (MDRD) > 60.0 ml/min Glucose 184 H (74-106) mg/dL POC Glucose (70-99) mg/dL Calcium 9.2 (8.5-10.1) mg/dL Total Bilirubin 0.5 (0.2-1.0) mg/dL AST 23 (15-37) IU/L ALT 43 (14-63) IU/L Alkaline Phosphatase 142 H (46-116) U/L Troponin I < 0.050 (0.000-0.056) ng/mL Total Protein 7.8 (6.4-8.2) g/dL Albumin 3.9 (3.4-5.0) g/dL Globulin 3.9 (2.6-4.0) g/dL Albumin/Globulin Ratio 1.0 (0.9-1.6) SARS-CoV-2 RNA (SORIN) (NEGATIVE) 11/01/20 11/01/20 Range/Units 05:54 07:20 WBC (4.0-11.0) K/uL RBC (4.30-5.90) M/uL Hgb (12.0-16.0) g/dL Hct (36.0-46.0) % MCV (80.0-98.0) fL MCH (27.0-32.0) pg MCHC (31.0-37.0) g/dL RDW Std Deviation (28.0-62.0) fl RDW Coeff of Trey (11.0-15.0) % Plt Count (150-400) K/uL MPV (7.40-12.00) fL Neut % (Auto) (48.0-80.0) % Lymph % (Auto) (16.0-40.0) % [place] % (Auto) (0.0-15.0) % Eos % (Auto) (0.0-7.0) % Baso % (Auto) (0.0-1.5) % Neut # (Auto) (1.4-5.7) K/uL Lymph # (Auto) (0.6-2.4) K/uL [place] # (Auto) (0.0-0.8) K/uL Eos # (Auto) (0.0-0.7) K/uL Baso # (Auto) (0.0-0.1) K/uL Nucleated RBC % /100WBC Nucleated RBCs # K/uL INR APTT (18.6-31.3) SEC Sodium (136-145) mmol/L Potassium (3.5-5.1) mmol/L Chloride (98-107) mmol/L Carbon Dioxide (21.0-32.0) mmol/L BUN (7.0-18.0) mg/dL Creatinine (0.6-1.0) mg/dL Est Cr Clr Drug Dosing Estimated GFR (MDRD) ml/min Glucose (74-106) mg/dL POC Glucose 191 H (70-99) mg/dL Calcium (8.5-10.1) mg/dL Total Bilirubin (0.2-1.0) mg/dL AST (15-37) IU/L ALT (14-63) IU/L Alkaline Phosphatase (46-116) U/L Troponin I (0.000-0.056) ng/mL Total Protein (6.4-8.2) g/dL Albumin (3.4-5.0) g/dL Globulin (2.6-4.0) g/dL Albumin/Globulin Ratio (0.9-1.6) SARS-CoV-2 RNA (SORIN) NEGATIVE (NEGATIVE) Result Diagrams: 11/01/20 05:54 11/01/20 05:54 Sepsis Event Note - Evaluation Sepsis Screening Result: No Definite Risk - Focused Exam Vital Signs: Vital Signs Temp Pulse Resp BP Pulse Ox Pulse Ox 11/01/20 07:45 75 18 151/84 H 96 11/01/20 07:30 70 19 147/89 H 96 11/01/20 07:15 82 18 174/96 H 11/01/20 07:00 75 18 172/83 H 88 L 11/01/20 06:55 76 16 176/91 H 94 L 11/01/20 06:50 86 15 164/80 H 95 11/01/20 06:47 80 20 153/79 H 94 L 11/01/20 06:41 92 20 165/92 H 95 11/01/20 06:15 79 15 193/102 H 92 L 11/01/20 06:00 75 14 218/108 H 93 L 11/01/20 05:59 86 19 221/119 H 93 L 11/01/20 05:55 96.7 F L 89 16 234/124 H 97 11/01/20 05:52 96 - Problem List (1) CVA (cerebral vascular accident) SNOMED Code(s): 041528948 ICD Code: I63.9 - CEREBRAL INFARCTION, UNSPECIFIED Status: Ruled-out Current Visit: No Qualifiers: CVA mechanism: embolism Precerebral and cerebral artery: posterior cerebral artery, left (2) DM type 2 (diabetes mellitus, type 2) SNOMED Code(s): 82218501 ICD Code: E11.9 - TYPE 2 DIABETES MELLITUS WITHOUT COMPLICATIONS Status: Chronic Current Visit: Yes Qualifiers: Diabetes mellitus long term care administrator insulin use: without skilled nursing use (3) History of CVA (cerebrovascular accident) SNOMED Code(s): 661848916 ICD Code: Z86.73 - PRSNL HX OF TIA (TIA), AND CEREB INFRC W/O RESID DEFICITS Status: Chronic Current Visit: Yes (4) Hypertension SNOMED Code(s): 69960643 ICD Code: I10 - ESSENTIAL (PRIMARY) HYPERTENSION Status: Chronic Current Visit: No Qualifiers: Hypertension type: primary hypertension Qualified Code(s): I10 - Essential (primary) hypertension (5) TIA (transient ischemic attack) SNOMED Code(s): 716855733 ICD Code: G45.9 - TRANSIENT CEREBRAL ISCHEMIC ATTACK, UNSPECIFIED Status: Suspected Current Visit: Yes (6) Hypertensive encephalopathy SNOMED Code(s): 70142910 ICD Code: I67.4 - HYPERTENSIVE ENCEPHALOPATHY Status: Suspected Current Visit: Yes Problem List Initiated/Reviewed/Updated: Yes Orders Last 24hrs: Active Orders 24 hr Category Date Time Status Patient Status [ADT] Routine ADT 11/01/20 06:55 Active Bedrest [RC] ASDIRECTED Care 11/01/20 05:52 Active Blood Glucose Check, Bedside [RC] ONETIME Care 11/01/20 05:52 Active Cardiac Monitoring [RC] . DIRECTED Care 11/01/20 05:52 Active EKG Documentation Completion [RC] STAT Care 11/01/20 05:52 Active Height and Weight [RC] UPON Care 11/01/20 05:52 Active Initiate Acute Stroke Protocol [RC] STAT Care 11/01/20 05:52 Active NIH Stroke Scale [RC] ASDIRECTED Care 11/01/20 05:52 Active Oxygen Therapy [RC] ASDIRECTED Care 11/01/20 05:52 Active Stroke Education, General [RC] Click to Edit Care 11/01/20 05:52 Active Telemetry Monitoring [Cardiac Monitoring] [RC] . Care 11/01/20 08:05 Ordered DIRECTED Vital Signs [RC] Q15M Care 11/01/20 05:52 Active Brain w wo Cont [MR] Urgent Exams 11/01/20 08:04 Ordered GLYCOSYLATED HEMOGLOBIN,HGBA1C [CHEM] Stat Lab 11/01/20 08:05 Ordered LIPID PANEL [CHEM] Stat Lab 11/01/20 08:05 Ordered TSH REFLEX TO FREE T4 [CHEM] Stat Lab 11/01/20 08:05 Ordered Sodium Chloride 0.9% [Normal Saline] Med 11/01/20 05:52 Active 10 ml IV ASDIRECTED PRN Sodium Chloride 0.9% [Normal Saline] 1,000 ml Med 11/01/20 07:45 Active IV ASDIRECTED Sodium Chloride 0.9% [Saline Flush] Med 11/01/20 05:52 Active 10 ml FLUSH ASDIRECTED PRN Sodium Chloride 0.9% [Saline Flush] Med 11/01/20 05:52 Active 2.5 ml FLUSH ASDIRECTED PRN niCARdipine/Normal Saline [Cardene in NS 20 MG/200 ML] Med 11/01/20 06:15 Active 20 mg in 200 ml IV TITRATE Peripheral IV Insertion Adult [OM.PC] Stat Oth 11/01/20 05:52 Ordered Peripheral IV Insertion Adult [OM.PC] Stat Oth 11/01/20 05:52 Ordered Medication Orders Nicardipine HCl (Cardene In Ns 20 Mg/200 Ml) 20 mg in 200 mls @ 50 mls/hr IV TITRATE ANA; Protocol Last Titration: 11/01/20 06:48 Dose: 0 mg/hr, 0 mls/hr Documented by: Titration: 11/01/20 06:40 Dose: 10 mg/hr, 100 mls/hr Documented by: Admin: 11/01/20 06:20 Dose: 5 mg/hr, 50 mls/hr Documented by: DIRK Sodium Chloride (Normal Saline) 1,000 mls @ 150 mls/hr IV ASDIRECTED ANA Sodium Chloride (Sodium Chloride 0.9% 10 Ml Syringe) 10 ml FLUSH ASDIRECTED PRN PRN Reason: Keep Vein Open Last Admin: 11/01/20 06:23 Dose: 10 ml Documented by: DIRK Sodium Chloride (Sodium Chloride 0.9% 2.5 Ml Syringe) 2.5 ml FLUSH ASDIRECTED PRN PRN Reason: Keep Vein Open Last Admin: 11/01/20 06:22 Dose: 2.5 ml Documented by: DIRK Sodium Chloride (Sodium Chloride 0.9% 10 Ml Sdv) 10 ml IV ASDIRECTED PRN PRN Reason: IV Use Assessment/Plan Comment:: This 55-year-old female admitted with possible acute ischemic stroke 1. TIA versus hypertensive encephalopathy -MRI obtained this morning shows no evidence of stroke. -Consider TIA versus hypertensive encephalopathy. Blood pressure severely elevated on arrival placed on nicardipine drip and has since been weaned off -TSH 3.04. A1c 7.9 and lipid panel shows LDL of 112 -Monitor on telemetry for arrhythmias -We will monitor blood pressure restart home medications -Labetalol as needed for blood pressure greater than 18 1 0 systolic -Neuro checks every 4 hours -PT OT evaluate and treat -Restart aspirin and Plavix -Patient has medication regimen noncompliance issues which appear to be noted throughout her PCP chart. -CPK normal did check due to reported prolonged length of time in heat with limited water. 2. DM type II -ADA diet -Check A1c -NovoLog sliding scale insulin with meals 3. Hypertension -Restart home medications monitor closely as we do not want to lower blood pre ssure too quickly VTE prophylaxis: Lovenox CODE STATUS: Full code Dispo: Possible discharge in a.m.
[2020-11-01] MEDS ORDERED: Ondansetron 4 MG/2 ML SDV IVPUSH PRN (08:39)
[2020-11-01] MEDS ORDERED: Acetaminophen 325 MG Tab PO PRN (08:39)
[2020-11-01] MEDS ORDERED: Glucagon,Human Recombinant 1 MG Vial IM PRN (08:42)
[2020-11-01] MEDS ORDERED: 50% Dextrose in Water 50 ML Syringe IVPUSH PRN (08:42)
[2020-11-01] MEDS ORDERED: Gadobenate Dimeglumine 529 MG/ML 20 ML SDV IVPUSH STA (09:54)
--- NOTE | 2020-11-01 11:00 | MR ---
INDICATION: CVA. TECHNIQUE: Sagittal T1 axial FLAIR T2 diffusion-weighted, susceptibility weighted gadolinium-enhanced axial coronal T1 weighted images. COMPARISON: CT and CTA examination on earlier today. FINDINGS: The lateral 3rd and 4th ventricles are normal in size and configuration. There is no evidence of recent ischemic infarction there no areas of diffusion restriction. There is no evidence of intracranial hemorrhage. No enhancing intra-axial or extra-axial lesion. Brainstem and cerebellum appear normal. The orbits sella turcica paranasal sinuses and skull base are unremarkable. IMPRESSION: Negative MRI examination the brain with and without contrast. No evidence of acute infarction intracranial hemorrhage mass or enhancing lesion. Dictated by Hemant Patiño MD @ 11/01/2020 10:57:[address] Hemant Patiño @ Nov 01 2020 10:57AM
[2020-11-01] MEDS: Insulin Aspart 100 Units/ML 3 ML Pen SUBCUT SCH ×3 (12:31→19:14)
[2020-11-01] MEDS: Enoxaparin 40 MG/0.4 ML Syringe SUBCUT SCH (14:01)
[2020-11-01] MEDS: Clopidogrel 75 MG Tab PO SCH (14:01)
[2020-11-01] MEDS: Aspirin 81 MG Tab.Chew PO SCH (14:03)
[2020-11-01] MEDS: Labetalol 100 MG/20 ML MDV IVPUSH PRN (19:32)
[2020-11-01] MEDS ORDERED: atorvaSTATin 40 MG Tab PO SCH (21:00)
[2020-11-02 06:37] LABS: BLOOD UREA NITROGEN,BUN 10 mg/dL (7.0-18.0); CARBON DIOXIDE,CO2 25.4 mmol/L (21.0-32.0); CHLORIDE,CL 103 mmol/L (98-107); GLUCOSE RANDOM 163 mg/dL (74-106); POTASSIUM,K 3.5 mmol/L (3.5-5.1); SODIUM,NA 140 mmol/L (136-145)
[2020-11-02] MEDS ORDERED: Magnesium Sulfate/Water 2 GM in Premix Bag 1 BAG IV ONE (08:06)
[2020-11-02] MEDS: Aspirin 81 MG Tab.Chew PO SCH (08:18)
[2020-11-02] MEDS: Insulin Aspart 100 Units/ML 3 ML Pen SUBCUT SCH ×2 (08:20→12:38)
[2020-11-02] MEDS: Clopidogrel 75 MG Tab PO SCH (08:20)
[2020-11-02] MEDS ORDERED: amLODIPine 5 MG Tab PO ONE ×2 (10:51→13:41)
[2020-11-02] MEDS: Enoxaparin 40 MG/0.4 ML Syringe SUBCUT SCH (13:33)
[2020-11-02] MEDS: Labetalol 100 MG/20 ML MDV IVPUSH PRN (13:51)
--- NOTE | 2020-11-02 15:34 | PCM.DCSUM1 ---
Discharge Summary - Discharge Data Discharge Date: 11/02/20 Discharge Disposition: Home, Self-Care 01 Condition: Good - Referral to Home Health Primary Care Physician: PCP None - Discharge Diagnosis/Problem(s) (1) CVA (cerebral vascular accident) SNOMED Code(s): 432323253 ICD Code: I63.9 - CEREBRAL INFARCTION, UNSPECIFIED Status: Ruled-out Current Visit: No Qualifiers: CVA mechanism: embolism Precerebral and cerebral artery: posterior cerebral artery, left (2) DM type 2 (diabetes mellitus, type 2) SNOMED Code(s): 07833577 ICD Code: E11.9 - TYPE 2 DIABETES MELLITUS WITHOUT COMPLICATIONS Status: Chronic Current Visit: Yes Qualifiers: Diabetes mellitus lottery manager insulin use: without lottery manager use (3) History of CVA (cerebrovascular accident) SNOMED Code(s): 959127748 ICD Code: Z86.73 - PRSNL HX OF TIA (TIA), AND CEREB INFRC W/O RESID DEFICITS Status: Chronic Current Visit: Yes (4) Hypertension SNOMED Code(s): 36208990 ICD Code: I10 - ESSENTIAL (PRIMARY) HYPERTENSION Status: Chronic Current Visit: No Qualifiers: Hypertension type: primary hypertension Qualified Code(s): I10 - Essential (primary) hypertension (5) TIA (transient ischemic attack) SNOMED Code(s): 052653278 ICD Code: G45.9 - TRANSIENT CEREBRAL ISCHEMIC ATTACK, UNSPECIFIED Status: Suspected Current Visit: Yes (6) Hypertensive encephalopathy SNOMED Code(s): 45762132 ICD Code: I67.4 - HYPERTENSIVE ENCEPHALOPATHY Status: Suspected Current Visit: Yes - Patient Summary/Data Consults: Consultations 11/01/20 12:22 OT Evaluation and Treatment [CONS] Routine PT Evaluation and Treatment [CONS] Routine Hospital Course: Admission diagnoses Left sided weakness Suspected CVA Hypertensive emergency Discharge diagnoses Noncompliance Hypertensive emergency Left-sided weakness resolved Other PMH HTN noncompliant and uncontrolled Diabetes noncompliant and uncontrolled Padma was admitted secondary to left-sided weakness. She had significant worsening of baseline weakness to the left side. She reports she was outside the day previously in the heat and did not drink a significant amount of water. When she arrived she was noted to have significant elevated blood pressures and started on nicardipine drip which was stopped within 1 hour of starting. Blood pressures remained mildly elevated but stable. Patient had no chest pain. She was evaluated for CVA which brain MRI came back negative. Head and neck CTA revealed chronic occlusion of left MCA as the prominent adjacent lenticulostriate branches as well as opacification the more distal branches of the middle cerebral artery. Patient laboratory studies revealed A1c 7.9 LDL 112 TSH 3.04. Patient counseled heavily on taking medications as appropriate. She openly reports that she is bad at taking medications and at times feels that she gets significant side effects from these medications. She was counseled she needs to take her medications appropriately to help reduce risk of further CVAs and or cardiac concerns. She also was encouraged to speak with her PCP about changing diabetic medications if she does not like her glipizide. UA was checked which was negative. PT was consulted and saw patient for second time today with complete resolution of left-sided weakness. Patient reports she is feeling much improved. Blood pressure remained slightly elevated 160s to 180s systolically. She was given her home dose of telmisartan 80 mg. As well as amlodipine 10 mg. She will be started on amlodipine 10 mg home dose with instructions to monitor blood pressure and report to PCP. She again was counseled heavily on being compliant with medications to continue to lower her risk of further CVAs. She verbalized understanding. She will have follow-up with Dr. Barlow. Dr. Barlow was notified regarding CTA findings and felt it was appropriate patient to be seen as an outpatient and continue with further management as we are currently doing. She is also to see PCP in 7 to 10 days. She is to return to the ER clinic if concerns should arise. Blood pressure remains somewhat elevated prior to discharge today. Patient very anxious and wanting to leave and understands to monitor her blood pressure at home. She was given labetalol to help decrease blood pressure patient remains asymptomatic and again is very eager to be discharged home. Anxiety may be contributing to elevated blood pressures at this time. She is monitor blood pressure at home return to the ER symptoms present or have close follow with PCP on Saturday. She is to monitor blood pressures tomorrow if they remain elevated she is to seek medical attention. Verbalized understanding. - Patient Instructions Diet: Heart Healthy Diet, Diabetic Diet Activity: No Strenuous Activities Showering/Bathing: May Shower Notify Provider of: Fever, Increased Pain, Swelling and Redness, Drainage, Nausea and/or Vomiting Other/Special Instructions: Stay inside during times of excessive heat. If you are outside when it is very hot and humid please insure you are drinking adequate amounts of water to stay hydrated. Take all medications to reduce the risk of poor outcomes related to high blood pressure and Diabetes. - Discharge Plan *PRESCRIPTION DRUG MONITORING PROGRAM REVIEWED*: Not Applicable *COPY OF PRESCRIPTION DRUG MONITORING REPORT IN PATIENT IAIN: Not Applicable Prescriptions/Med Rec: amLODIPine Besylate [Amlodipine Besylate] 10 mg PO DAILY #30 tablet Clopidogrel [Plavix] 75 mg PO DAILY #30 tab Home Medications: Home Meds traMADol [Ultram] 50 mg PO QID PRN 11/01/15 [History] atorvaSTATin [Lipitor] 40 mg PO BEDTIME 11/07/15 [History] glipiZIDE [Glucotrol XL] 5 mg PO DAILY 03/15/19 [History] Aspirin 81 mg PO DAILY 11/01/20 [History] Pioglitazone [Actos] 30 mg PO DAILY PRN 11/01/20 [History] Telmisartan 80 mg PO DAILY 11/01/20 [History] Clopidogrel [Plavix] 75 mg PO DAILY #30 tab 11/02/20 [Rx] amLODIPine Besylate [Amlodipine Besylate] 10 mg PO DAILY #30 tablet 11/02/20 [Rx] Oxygen Therapy Mode: Room Air Patient Handouts: Ischemic Stroke, [id number], Clopidogrel tablets Referrals: Audra Barlow MD [Physician] - 01/05/21 3:30 pm Andrea Bolivar MD [Ordering Only Provider] - 11/04/20 12:30 pm - Discharge Summary/Plan Comment DC Time >30 min.: No - Patient Data Vitals - Most Recent: Last Vital Signs Temp 97.6 F 11/02/20 15:06 Pulse 65 11/02/20 15:06 Resp 18 11/02/20 15:06 BP 177/101 H 11/02/20 15:06 Pulse Ox 99 11/02/20 15:06 Weight - Most Recent: 74.843 kg I&O - Last 24 hours: Intake & Output 11/02/20 11/02/20 11/02/20 06:59 14:59 22:59 Intake Total 860 50 Output Total 400 Balance 460 50 Lab Results - Last 24 hrs: Laboratory Results - last 24 hr 11/01/20 11/01/20 11/02/20 Range/Units 05:54 18:55 05:48 WBC 5.18 (4.0-11.0) K/uL RBC 4.29 L (4.30-5.90) M/uL Hgb 12.2 (12.0-16.0) g/dL Hct 36.3 (36.0-46.0) % MCV 84.6 (80.0-98.0) fL MCH 28.4 (27.0-32.0) pg MCHC 33.6 (31.0-37.0) g/dL RDW Std Deviation 41.0 (28.0-62.0) fl RDW Coeff of Trey 13 (11.0-15.0) % Plt Count 245 (150-400) K/uL MPV 9.20 (7.40-12.00) fL Neut % (Auto) 61.2 (48.0-80.0) % Lymph % (Auto) 27.4 (16.0-40.0) % [place] % (Auto) 9.1 (0.0-15.0) % Eos % (Auto) 1.7 (0.0-7.0) % Baso % (Auto) 0.6 (0.0-1.5) % Neut # (Auto) 3.2 (1.4-5.7) K/uL Lymph # (Auto) 1.4 (0.6-2.4) K/uL [place] # (Auto) 0.5 (0.0-0.8) K/uL Eos # (Auto) 0.1 (0.0-0.7) K/uL Baso # (Auto) 0.0 (0.0-0.1) K/uL Nucleated RBC % 0.0 /100WBC Nucleated RBCs # 0 K/uL Sodium (136-145) mmol/L Potassium (3.5-5.1) mmol/L Chloride (98-107) mmol/L Carbon Dioxide (21.0-32.0) mmol/L BUN (7.0-18.0) mg/dL Creatinine (0.6-1.0) mg/dL Est Cr Clr Drug Dosing mL/min Estimated GFR (MDRD) ml/min Glucose (74-106) mg/dL POC Glucose 207 H (70-99) mg/dL Calcium (8.5-10.1) mg/dL Magnesium (1.8-2.4) mg/dL Creatine Kinase 100 (26-308) U/L Urine Color Urine Appearance Urine pH (5.0-8.0) Ur Specific [place] (1.001-1.035) Urine Protein (NEGATIVE) mg/dL Urine Glucose (UA) (NEGATIVE) mg/dL Urine Ketones (NEGATIVE) mg/dL Urine Occult Blood (NEGATIVE) Urine Nitrite (NEGATIVE) Urine Bilirubin (NEGATIVE) Urine Urobilinogen (<2.0) EU/dL Ur Leukocyte Esterase (NEGATIVE) Urine RBC (0-2/HPF) Urine WBC (0-5/HPF) Ur Epithelial Cells (NONE-FEW) Calcium Oxalate Crystal (NEGATIVE) Urine Bacteria (NEGATIVE) 11/02/20 11/02/20 11/02/20 Range/Units 05:48 06:34 09:50 WBC (4.0-11.0) K/uL RBC (4.30-5.90) M/uL Hgb (12.0-16.0) g/dL Hct (36.0-46.0) % MCV (80.0-98.0) fL MCH (27.0-32.0) pg MCHC (31.0-37.0) g/dL RDW Std Deviation (28.0-62.0) fl RDW Coeff of Trey (11.0-15.0) % Plt Count (150-400) K/uL MPV (7.40-12.00) fL Neut % (Auto) (48.0-80.0) % Lymph % (Auto) (16.0-40.0) % [place] % (Auto) (0.0-15.0) % Eos % (Auto) (0.0-7.0) % Baso % (Auto) (0.0-1.5) % Neut # (Auto) (1.4-5.7) K/uL Lymph # (Auto) (0.6-2.4) K/uL [place] # (Auto) (0.0-0.8) K/uL Eos # (Auto) (0.0-0.7) K/uL Baso # (Auto) (0.0-0.1) K/uL Nucleated RBC % /100WBC Nucleated RBCs # K/uL Sodium 140 (136-145) mmol/L Potassium 3.5 (3.5-5.1) mmol/L Chloride 103 (98-107) mmol/L Carbon Dioxide 25.4 (21.0-32.0) mmol/L BUN 10 (7.0-18.0) mg/dL Creatinine 0.7 (0.6-1.0) mg/dL Est Cr Clr Drug Dosing 69.33 mL/min Estimated GFR (MDRD) > 60.0 ml/min Glucose 163 H (74-106) mg/dL POC Glucose 162 H (70-99) mg/dL Calcium 8.8 (8.5-10.1) mg/dL Magnesium 1.7 L (1.8-2.4) mg/dL Creatine Kinase (26-308) U/L Urine Color YELLOW Urine Appearance CLEAR Urine pH 6.0 (5.0-8.0) Ur Specific [place] 1.015 (1.001-1.035) Urine Protein NEGATIVE (NEGATIVE) mg/dL Urine Glucose (UA) NEGATIVE (NEGATIVE) mg/dL Urine Ketones NEGATIVE (NEGATIVE) mg/dL Urine Occult Blood TRACE-LYSED H (NEGATIVE) Urine Nitrite NEGATIVE (NEGATIVE) Urine Bilirubin NEGATIVE (NEGATIVE) Urine Urobilinogen 0.2 (<2.0) EU/dL Ur Leukocyte Esterase SMALL H (NEGATIVE) Urine RBC 0-2 (0-2/HPF) Urine WBC 2-5 (0-5/HPF) Ur Epithelial Cells FEW (NONE-FEW) Calcium Oxalate Crystal RARE (NEGATIVE) Urine Bacteria FEW (NEGATIVE) 11/02/20 Range/Units 11:18 WBC (4.0-11.0) K/uL RBC (4.30-5.90) M/uL Hgb (12.0-16.0) g/dL Hct (36.0-46.0) % MCV (80.0-98.0) fL MCH (27.0-32.0) pg MCHC (31.0-37.0) g/dL RDW Std Deviation (28.0-62.0) fl RDW Coeff of Trey (11.0-15.0) % Plt Count (150-400) K/uL MPV (7.40-12.00) fL Neut % (Auto) (48.0-80.0) % Lymph % (Auto) (16.0-40.0) % [place] % (Auto) (0.0-15.0) % Eos % (Auto) (0.0-7.0) % Baso % (Auto) (0.0-1.5) % Neut # (Auto) (1.4-5.7) K/uL Lymph # (Auto) (0.6-2.4) K/uL [place] # (Auto) (0.0-0.8) K/uL Eos # (Auto) (0.0-0.7) K/uL Baso # (Auto) (0.0-0.1) K/uL Nucleated RBC % /100WBC Nucleated RBCs # K/uL Sodium (136-145) mmol/L Potassium (3.5-5.1) mmol/L Chloride (98-107) mmol/L Carbon Dioxide (21.0-32.0) mmol/L BUN (7.0-18.0) mg/dL Creatinine (0.6-1.0) mg/dL Est Cr Clr Drug Dosing mL/min Estimated GFR (MDRD) ml/min Glucose (74-106) mg/dL POC Glucose 197 H (70-99) mg/dL Calcium (8.5-10.1) mg/dL Magnesium (1.8-2.4) mg/dL Creatine Kinase (26-308) U/L Urine Color Urine Appearance Urine pH (5.0-8.0) Ur Specific [place] (1.001-1.035) Urine Protein (NEGATIVE) mg/dL Urine Glucose (UA) (NEGATIVE) mg/dL Urine Ketones (NEGATIVE) mg/dL Urine Occult Blood (NEGATIVE) Urine Nitrite (NEGATIVE) Urine Bilirubin (NEGATIVE) Urine Urobilinogen (<2.0) EU/dL Ur Leukocyte Esterase (NEGATIVE) Urine RBC (0-2/HPF) Urine WBC (0-5/HPF) Ur Epithelial Cells (NONE-FEW) Calcium Oxalate Crystal (NEGATIVE) Urine Bacteria (NEGATIVE) Med Orders - Current: Current Medications Acetaminophen (Acetaminophen 325 Mg Tab) 650 mg PO Q4H PRN PRN Reason: Pain (Mild 1-3)/fever Aspirin (Aspirin 81 Mg Tab.Chew) 81 mg PO DAILY ANA Last Admin: 11/02/20 08:18 Dose: 81 mg Documented by: Atorvastatin Calcium (Atorvastatin 40 Mg Tab) 40 mg PO BEDTIME [facility] Last Admin: 11/01/20 20:34 Dose: 40 mg Documented by: Clopidogrel Bisulfate (Clopidogrel 75 Mg Tab) 75 mg PO DAILY [facility] Last Admin: 11/02/20 08:20 Dose: 75 mg Documented by: Dextrose/Water (50% Dextrose In Water 50 Ml Syringe) 50 ml IVPUSH ASDIRECTED PRN PRN Reason: Hypoglycemia Enoxaparin Sodium (Enoxaparin 40 Mg/0.4 Ml Syringe) 40 mg SUBCUT Q24H [facility] Last Admin: 11/02/20 13:33 Dose: 40 mg Documented by: Glucagon (Glucagon,Human Recombinant 1 Mg Vial) 1 mg IM ASDIRECTED PRN PRN Reason: Hypoglycemia Insulin Aspart (Insulin Aspart 100 Units/Ml 3 Ml Pen) 0 unit SUBCUT TIDAC [facility]; Protocol Last Admin: 11/02/20 12:38 Dose: 1 unit Documented by: Labetalol HCl (Labetalol 100 Mg/20 Ml Mdv) 20 mg IVPUSH Q4H PRN PRN Reason: SBP>180 Last Admin: 11/02/20 13:51 Dose: 20 mg Documented by: Labetalol HCl (Labetalol 100 Mg/20 Ml Mdv) 10 mg IVPUSH ONETIME ONE Stop: 11/02/20 15:24 Ondansetron HCl (Ondansetron 4 Mg/2 Ml Sdv) 4 mg IVPUSH Q4H PRN PRN Reason: Nausea Sodium Chloride (Sodium Chloride 0.9% 2.5 Ml Syringe) 2.5 ml FLUSH ASDIRECTED PRN PRN Reason: Keep Vein Open Telmisartan (Telmisartan 40 Mg Tab) 80 mg PO DAILY [facility] Last Admin: 11/02/20 08:19 Dose: 80 mg Documented by: Discontinued Medications Amlodipine Besylate (Amlodipine 5 Mg Tab) 5 mg PO ONETIME ONE Stop: 11/02/20 10:52 Last Admin: 11/02/20 11:20 Dose: 5 mg Documented by: Amlodipine Besylate (Amlodipine 5 Mg Tab) 5 mg PO ONETIME ONE Stop: 11/02/20 13:42 Last Admin: 11/02/20 14:02 Dose: 5 mg Documented by: Gadobenate Dimeglumine (Gadobenate Dimeglumine 529 Mg/Ml 20 Ml Sdv) 20 ml IVPUSH ONETIME STA Stop: 11/01/20 09:55 Last Admin: 11/01/20 10:01 Dose: 15 ml Documented by: Nicardipine HCl (Cardene In Ns 20 Mg/200 Ml) 20 mg in 200 mls @ 50 mls/hr IV TITRATE ANA; Protocol Last Titration: 11/01/20 06:48 Dose: 0 mg/hr, 0 mls/hr Documented by: Sodium Chloride (Normal Saline) 1,000 mls @ 150 mls/hr IV ASDIRECTED ANA Magnesium Sulfate 2 gm/ Premix 50 mls @ 25 mls/hr IV ONETIME ONE Stop: 11/02/20 10:05 Last Admin: 11/02/20 08:22 Dose: 25 mls/hr Documented by: Iopamidol (Iopamidol 755 Mg/Ml 500 Ml Multipack Bottle) 100 ml IVPUSH ONETIME STA Stop: 11/01/20 06:21 Last Admin: 11/01/20 06:21 Dose: 100 ml Documented by: Sodium Chloride (Sodium Chloride 0.9% 10 Ml Syringe) 10 ml FLUSH ASDIRECTED PRN PRN Reason: Keep Vein Open Last Admin: 11/01/20 06:23 Dose: 10 ml Documented by: Sodium Chloride (Sodium Chloride 0.9% 2.5 Ml Syringe) 2.5 ml FLUSH ASDIRECTED PRN PRN Reason: Keep Vein Open Last Admin: 11/01/20 06:22 Dose: 2.5 ml Documented by: Sodium Chloride (Sodium Chloride 0.9% 10 Ml Sdv) 10 ml IV ASDIRECTED PRN PRN Reason: IV Use Telmisartan (Telmisartan 40 Mg Tab) 80 mg PO DAILY ANA
[2020-11-02] MEDS: Labetalol 100 MG/20 ML MDV IVPUSH ONE ×2 (15:55→15:58)
[2020-11-02 15:59] VITALS: BP 141/76; PULSE 63
== END 2020-11-02 16:16 | disposition home or self-care (01) ==
LOC: MW.ED 05:49 → MW.MS 06:55
PROVIDERS: ADMIT Student in an Organized Health Care Education/Training Program; ATTEND Student in an Organized Health Care Education/Training Program
DX: R53.1 Weakness (principal); I16.1 Hypertensive emergency; R47.81 Slurred speech; E11.9 Type 2 diabetes mellitus without complications; I10 Essential (primary) hypertension; Z79.899 Other long term (current) drug therapy; Z86.73 Personal history of transient ischemic attack (TIA), and cerebral infarction without residual deficits; Z91.19 Patient's noncompliance with other medical treatment and regimen; Z91.040 Latex allergy status; E78.00 Pure hypercholesterolemia, unspecified; Z20.822 Contact with and (suspected) exposure to COVID-19
CPT/HCPCS: 36415; 70450; 70496; 70498; 70553; 71045; 80048; 80053; 80061; 81001; 82550; 82947; 83036; 83735; 84443; 84484; 85025; 85610; 85730; 87086; 93005; 93306; 97110; 97161; 97165; A9270; A9577; J1650; J1815; J3475; J3490; Q9967; U0002